=== PATIENT | female | born 1995 | race American Indian/Alaskan Native ===

== ENCOUNTER 2016-12-22 13:14 | Inpatient (IN) | payer MEDICAID, OTHER, SELFPAY ==
[2016-12-22] MEDS ORDERED: Albuterol/Ipratropium 3.0-0.5 MG/3 ML Neb Soln NEB ONE (13:26)
[2016-12-22] MEDS ORDERED: methylPREDNISolone Sodium Succinate 125 MG/2 ML SDV IVPUSH ONE (13:26)
[2016-12-22] MEDS ORDERED: Albuterol 0.083% 2.5 MG/3 ML Neb Soln NEB ONE (13:48)
[2016-12-22] MEDS: Sodium Chloride 0.9% 10 ML Syringe FLUSH PRN ×2 (13:53→13:54)
[2016-12-22 14:04] LABS: CHLORIDE,CL 103 mmol/L (101-111); SODIUM,NA 136 mmol/L (135-145)
[2016-12-22] MEDS ORDERED: Acetaminophen 325 MG Tab PO ONE (14:07)
[2016-12-22] MEDS ORDERED: Sodium Chloride 0.9% 1,000 ML IV ONE (14:54)
[2016-12-22] MEDS ORDERED: Magnesium Sulfate/Water 100 ML IV ONE (14:55)
--- NOTE | 2016-12-22 15:08 | EDM.PDOC ---
Scribed by Laura Rasmussen 12/22/16 2221 for Leila Warner NP ED HPI GENERAL MEDICAL PROBLEM - General Chief Complaint: Respiratory Problem Stated Complaint: ASTHMA Time Seen by Provider: 12/22/16 13:20 Source of Information: Reports: Patient, RN, RN Notes Reviewed History Limitations: Reports: No Limitations - History of Present Illness INITIAL COMMENTS - FREE TEXT/NARRATIVE: Patient presents with complaint of shortness of breath and cough. States she ran out of her Albuterol inhaler. She has been using Albuterol nebs instead.She states taking all her other asthma meds as directed. States fever and chills on and off for past 2 days. Location: Reports: Chest Quality: Reports: Ache Severity: Severe Improves with: Reports: None Worsens with: Reports: None Associated Symptoms: Reports: No Other Symptoms - Related Data Allergies Allergy/AdvReac Type Severity Reaction Status Date / Time No Known Allergies Allergy Verified 03/26/16 07:52 MST Home Meds: Home Meds Albuterol [Proventil HFA] 2 puff INH ASDIRECTED PRN 10/10/15 [History] Albuterol/Ipratropium [DuoNeb 3.0-0.5 MG/3 ML] 3 ml NEB Q4HR PRN 10/10/15 [ History] Fluticasone/Salmeterol [Advair Diskus 100-50] 1 puff INH BID 10/10/15 [History] Montelukast [Singulair] 10 mg PO BEDTIME 12/02/15 [History] Tiotropium [Spiriva HandiHaler] 1.29 mcg BID 01/04/16 [History] Past Medical History HEENT History: Reports: None Cardiovascular History: Reports: None Respiratory History: Reports: Asthma Genitourinary History: Reports: UTI, Recurrent [employer] History: Reports: Other (See Below) Other OB/BYN History: - Infectious Disease History Infectious Disease History: Reports: Chicken Pox - Past Surgical History HEENT Surgical History: Reports: None Cardiovascular Surgical History: Reports: None Respiratory Surgical History: Reports: None Female Surgical History: Reports: None, Other (See Below) Social & Family History - Family History Family Medical History: Noncontributory Cardiac: Reports: Hypertension Respiratory: Reports: Asthma GI: Reports: None Endocrine/Metabolic: Reports: Diabetes, Type I Oncologic: Reports: Brain - Tobacco Use Smoking Status *Q: Never Smoker Second Hand Smoke Exposure: No - Caffeine Use Caffeine Use: Reports: Soda - Recreational Drug Use Recreational Drug Use: No Drug Use in Last 12 Months: No ED ROS GENERAL - Review of Systems Review Of Systems: ROS reveals no pertinent complaints other than HPI. ED EXAM, GENERAL - Physical Exam Exam: See Below Exam Limited By: No Limitations General Appearance: Alert, WD/WN, No Apparent Distress Eye Exam: Bilateral Eye: Normal Inspection Ears: Normal External Exam, Normal Canal, Hearing Grossly Normal, Normal TMs Nose: Normal Inspection, Normal Mucosa, No Blood Throat/Mouth: Normal Inspection, Normal Lips, Normal Teeth, Normal Gums, Normal Oropharynx, Normal Voice, No Airway Compromise Head: Atraumatic, Normocephalic Neck: Normal Inspection, Supple, Non-Tender, Full Range of Motion Respiratory/Chest: Crackles (throughout and tight.) Cardiovascular: Tachycardia GI/Abdominal: Normal Bowel Sounds, Soft, Non-Tender, No Organomegaly, No Distention, No Abnormal Bruit, No Mass (Female) Exam: Deferred Rectal (Female) Exam: Deferred Back Exam: Normal Inspection, Full Range of Motion, NT Extremities: Normal Inspection, Normal Range of Motion, Non-Tender, Normal Capillary Refill, No Pedal Edema Neurological: Alert, Oriented, CN II-XII Intact, Normal Cognition, Normal Gait, Normal Reflexes, No Motor/Sensory Deficits Psychiatric: Normal Affect, Normal Mood Skin Exam: Warm, Dry, Intact, Normal Color, No Rash Lymphatic: No Adenopathy EKG INTERPRETATION EKG Date: 12/22/16 Time: 14:28 Rhythm: Other (junctional tachycardia) Rate (Beats/Min): 131 [place]: RAD-Right [place] Deviation (borderline) P-Wave: Present QRS: Normal ST-T: Other (abnormal T,consider ischemia,diffuse leads.) QT: Normal Course - Vital Signs Last Recorded V/S: Last Vital Signs Temp 102.6 F H 12/22/16 14:41 Pulse 133 H 12/22/16 14:41 Resp 28 H 12/22/16 14:41 BP 116/64 12/22/16 14:41 Pulse Ox 94 L 12/22/16 14:41 - Orders/Labs/Meds Orders: Active Orders 24 hr Category Date Time Status EKG Documentation Completion [RC] STAT Care 12/22/16 13:25 Active Peripheral IV Care [RC] . DIRECTED Care 12/22/16 13:26 Active RT Aerosol Therapy [RC] ASDIRECTED Care 12/22/16 13:26 Active RT Aerosol Therapy [RC] ASDIRECTED Care 12/22/16 13:48 Active Chest 1V Frontal [CR] Stat Exams 12/22/16 13:28 Taken Magnesium Sulfate/Water [Magnesium Sulfate 4 GM in Med 12/22/16 14:55 Active Water 100 ML] 100 ml IV ONETIME Sodium Chloride 0.9% [Normal Saline] 1,000 ml Med 12/22/16 14:54 Active IV .BOLUS Sodium Chloride 0.9% [Saline Flush] Med 12/22/16 13:24 Active 10 ml FLUSH ASDIRECTED PRN Peripheral IV Insertion Adult [OM.PC] Stat Oth 12/22/16 13:25 Ordered Medication Orders Sodium Chloride (Normal Saline) 1,000 mls @ 999 mls/hr IV .BOLUS ONE Stop: 12/22/16 15:54 Magnesium Sulfate (Magnesium Sulfate 4 Gm In Water 100 Ml) 100 mls @ 25 mls/hr IV ONETIME ONE Stop: 12/22/16 18:54 Sodium Chloride (Saline Flush) 10 ml FLUSH ASDIRECTED PRN PRN Reason: Keep Vein Open Last Admin: 12/22/16 13:54 Dose: 10 ml Admin: 12/22/16 13:53 Dose: 10 ml Labs: Laboratory Tests 12/22/16 12/22/16 Range/Units 13:39 13:39 WBC 21.6 H (5.0-10.0) 10^3/uL RBC 5.23 (4.2-5.4) 10^6/uL Hgb 14.1 D (12.0-16.0) g/dL Hct 41.5 (37.0-47.0) % MCV 79.3 L D (80-100) fL MCH 27.0 (27.0-34.0) pg MCHC 34.0 (33.0-35.0) g/dL Plt Count 345 (150-450) 10^3/uL Neut % (Auto) 82.8 H (42.2-75.2) % Lymph % (Auto) 9.7 L (20.5-50.1) % Elbert % (Auto) 6.4 (2-8) % Eos % (Auto) 0.9 L (1.0-3.0) % Baso % (Auto) 0.2 (0.0-1.0) % Sodium 136 (135-145) mmol/L Potassium 3.5 L (3.6-5.0) mmol/L Chloride 103 (101-111) mmol/L Carbon Dioxide 21.0 (21.0-31.0) mmol/L Anion Gap 15.5 BUN 8 (7-18) mg/dL Creatinine 0.9 (0.6-1.3) mg/dL Est Cr Clr Drug Dosing 84.67 mL/min Estimated GFR (MDRD) > 60 BUN/Creatinine Ratio 8.88 Glucose 111 H (74-105) mg/dL Calcium 9.2 (8.4-10.2) mg/dl Total Bilirubin 0.4 (0.2-1.0) mg/dL AST 26 (10-42) IU/L ALT 28 (10-60) IU/L Alkaline Phosphatase 85 (42-121) IU/L Total Protein 8.4 H (6.7-8.2) g/dl Albumin 4.4 (3.2-5.5) g/dl Globulin 4.0 Albumin/Globulin Ratio 1.10 Meds: Medications Generic Name Dose Route Start Last Admin Trade Name Freq PRN Reason Stop Dose Admin Sodium Chloride 1,000 mls @ 999 mls/hr 12/22/16 14:54 Normal Saline IV 12/22/16 15:54 .BOLUS ONE Magnesium Sulfate 100 mls @ 25 mls/hr 12/22/16 14:55 Magnesium Sulfate 4 Gm In Water 100 Ml IV 12/22/16 18:54 ONETIME ONE Sodium Chloride 10 ml 12/22/16 13:24 12/22/16 13:54 Saline Flush FLUSH 10 ml ASDIRECTED PRN Administration Keep Vein Open Discontinued Medications Generic Name Dose Route Start Last Admin Trade Name Freq PRN Reason Stop Dose Admin Acetaminophen 650 mg 12/22/16 14:07 12/22/16 14:32 Tylenol PO 12/22/16 14:08 650 mg NOW ONE Administration Albuterol 10 mg 12/22/16 13:48 12/22/16 14:00 Proventil Neb Soln NEB 12/22/16 13:49 10 mg ONETIME ONE Administration Albuterol/Ipratropium 3 ml 12/22/16 13:26 12/22/16 13:38 Duoneb 3.0-0.5 Mg/3 Ml NEB 12/22/16 13:27 3 ml ONETIME ONE Administration Methylprednisolone Sodium Succinate 125 mg 12/22/16 13:26 12/22/16 13:52 Solu-Medrol IVPUSH 12/22/16 13:27 125 mg ONETIME ONE Administration - Radiology Interpretation Free Text/Narrative:: Chest xray: No acute findings See rad report Departure - Departure Time of Disposition: 15:07 Disposition: Admitted As Inpatient 65 Condition: Poor, Serious Clinical Impression: Acute asthma Pneumonia Qualifiers: Pneumonia type: due to unspecified organism Laterality: right Lung location: lower lobe of lung Qualified Code(s): J18.1 - Lobar pneumonia, unspecified organism - Discharge Information Forms: ED Department Discharge - My Orders Last 24 Hours: My Active Orders 12/22/16 13:24 Sodium Chloride 0.9% [Saline Flush] 10 ml FLUSH ASDIRECTED PRN 12/22/16 13:25 EKG Documentation Completion [RC] STAT Peripheral IV Insertion Adult [OM.PC] Stat 12/22/16 13:26 Peripheral IV Care [RC] . DIRECTED RT Aerosol Therapy [RC] ASDIRECTED 12/22/16 13:28 Chest 1V Frontal [CR] Stat 12/22/16 13:48 RT Aerosol Therapy [RC] ASDIRECTED 12/22/16 14:54 Sodium Chloride 0.9% [Normal Saline] 1,000 ml IV .BOLUS 12/22/16 14:55 Magnesium Sulfate/Water [Magnesium Sulfate 4 GM in Water 100 ML] 100 ml IV ONETIME - Assessment/Plan Last 24 Hours: My Active Orders 12/22/16 13:24 Sodium Chloride 0.9% [Saline Flush] 10 ml FLUSH ASDIRECTED PRN 12/22/16 13:25 EKG Documentation Completion [RC] STAT Peripheral IV Insertion Adult [OM.PC] Stat 12/22/16 13:26 Peripheral IV Care [RC] . DIRECTED RT Aerosol Therapy [RC] ASDIRECTED 12/22/16 13:28 Chest 1V Frontal [CR] Stat 12/22/16 13:48 RT Aerosol Therapy [RC] ASDIRECTED 12/22/16 14:54 Sodium Chloride 0.9% [Normal Saline] 1,000 ml IV .BOLUS 12/22/16 14:55 Magnesium Sulfate/Water [Magnesium Sulfate 4 GM in Water 100 ML] 100 ml IV ONETIME I have read and agree with the documentation that has been completed regarding this visit. By signing this record, I attest that the documentation was completed in my physical presence and is an accurate record of the encounter.
[2016-12-22] MEDS ORDERED: Acetaminophen/HYDROcodone 325-10 MG Tab PO PRN (17:39)
[2016-12-22] MEDS ORDERED: Ondansetron 4 MG Tab.DIS PO PRN (17:39)
[2016-12-22] MEDS ORDERED: Albuterol/Ipratropium 3.0-0.5 MG/3 ML Neb Soln NEB PRN (17:44)
[2016-12-22] MEDS ORDERED: Albuterol 6.7 GM Inhaler INH PRN (17:44)
[2016-12-22] MEDS ORDERED: Codeine/guaiFENesin 100-10 MG/5 ML Syrup 5 ML Cup PO PRN (17:45)
[2016-12-22] MEDS: Albuterol/Ipratropium 3.0-0.5 MG/3 ML Neb Soln NEB SCH ×3 (17:52→23:03)
[2016-12-22] MEDS: Pantoprazole 40 MG Tab.CR PO SCH (17:53)
[2016-12-22] MEDS: Budesonide 0.5 MG/2 ML Neb Susp NEB SCH ×2 (17:53→18:28)
[2016-12-22] MEDS ORDERED: Levofloxacin/Dextrose 5%-Water 500 MG in Premix Bag 1 BAG IV SCH (18:00)
[2016-12-22] MEDS ORDERED: diphenhydrAMINE 50 MG/ML SDV IVPUSH PRN (20:37)
[2016-12-22] MEDS: methylPREDNISolone Sodium Succinate 125 MG/2 ML SDV IVPUSH SCH (20:57)
[2016-12-22] MEDS: Montelukast 10 MG Tab PO SCH (20:57)
--- NOTE | 2016-12-22 21:56 | HP ---
CHIEF COMPLAINT: Increasing shortness of breath. HISTORY OF PRESENT ILLNESS: Ms. Pete Scott is a 21-year-old female with medical history significant for chronic history of asthma and has been on nebulizers and inhalers at home visiting from the [place]. She has been here in [place] for the last 3 weeks, but for the last few days, she started experiencing increasing shortness of breath and present to the ER. While in the ER, the patient was noted to be in acute asthma exacerbation requiring nebulizer treatment and also IV magnesium needing admission to the hospital as her symptoms persisted and wheezing persisted. At this time, the patient complains increasing shortness of breath for the last few days, which has been progressively getting worse. She graded the shortness of breath as 8/10 in intensity, which got aggravated on exertion, relieved with rest and nebulizers after coming to the emergency room. Denies any chest pains. No cough with sputum for the last few days. No fevers or chills in the last few days. No nausea vomiting or diarrhea in the last few days. No complaints of chest pain. No complaints of abdominal pain. She is visiting from [place], and she ran out of her inhaler treatments. She tried to call them back, but she is off prescriptions at this time. The patient denied any history of chest pains on exertion, but has dyspnea on exertion. No history of orthopnea or paroxysmal nocturnal dyspnea. The patient denied any history of hematemesis, hematochezia, or melanotic stools. Normal bowel and bladder habits otherwise. REVIEW OF SYSTEMS: A complete review of system including skin, ear, nose, and throat, cardiovascular system, respiratory system, gastrointestinal system, genitourinary system, endocrinology, rheumatology, allergy, immunology hematology, and oncology were all evaluated and were negative except for the above-said notes. PAST MEDICAL HISTORY: Significant for asthma and history of polyhydramnios in third trimester in the past. PAST SURGICAL HISTORY: None as per the patient. ALLERGIES: No known drug allergies. SOCIAL HISTORY: The patient denied any history of smoking tobacco. No history of alcohol intake. FAMILY HISTORY: Significant for diabetes in her father. HOME MEDICATIONS: Include: 1. Spiriva inhalation treatment. 2. Singulair 10 mg at bedtime. 3. Advair Diskus 1 puff inhalation twice a day. 4. DuoNeb 3 mL nebulizer q.2 hours as needed. 5. Albuterol 2 puffs inhalation q.2 hours as needed. PHYSICAL EXAMINATION: Vital Signs: Temperature of 97.7, pulse of 122, blood pressure 191/51, respiratory rate of 27, and saturating at 92% on 2 L of oxygen. General Appearance: The patient is well oriented to time, place, and person. Follows commands spontaneously. Cardiovascular: S1, S2 heard with normal intensity. No gallops. Respiratory: Bilateral wheeze noted. Minimal crepitations at the bases. Abdomen: Soft. Bowel sounds positive. Nontender. No rigidity. Extremities: No edema bilateral lower extremities. Neurologic: No gross focal neurological deficits. LABORATORY DATA: WBC 21.6, hemoglobin 14.1, hematocrit 41.5, and platelet count 345. Sodium 136, potassium 3.5, chloride 103, bicarb 21, BUN 8, creatinine 0.9, glucose 111, AST 26, ALT 28, and total protein 8.4. ASSESSMENT: 1. Acute asthma exacerbation. 2. Leukocytosis. 3. Hypokalemia. 4. Hypomagnesemia. PLAN: 1. Acute asthma exacerbation. The patient continues to have wheeze on physical examination. We will have her on DuoNeb nebulizer every 4 hourly and also Pulmicort nebulizer twice a day. We will have her on IV methylprednisone 80 mg IV q.8 hourly. She did receive 125 mg of methylprednisone in the emergency room. We will also have her on supplemental oxygen as needed to maintain a saturation of 95% and above and closely follow the patient. Unsure if the patient has any acute bronchitis. The patient had an x-ray of the chest, which shows some haziness. We will empirically start her on IV ceftriaxone and Zithromax. The patient is also complaining of some burning micturition. We will obtain urinalysis, and we will follow the report. 2. Hypokalemia and hypomagnesium. We will replace with oral potassium chloride, and the patient did receive 4 mg of magnesium sulfate in the emergency room. We will also have her on oral magnesium, recheck a potassium and magnesium level in the a.m. 3. Leukocytosis. The patient is noted to have elevated WBC count. Unsure if the patient has any underlying acute bronchitis. We will start her on IV antibiotic regimen. 4. Code status. The patient wants to be full code. Discussed with ER physician regarding the plan of care. Reviewed the labs and medications. Reviewed the old charts. [facility] /[id number]
[2016-12-23] MEDS: Albuterol/Ipratropium 3.0-0.5 MG/3 ML Neb Soln NEB SCH ×6 (02:48→23:24)
[2016-12-23] MEDS: Pantoprazole 40 MG Tab.CR PO SCH (05:29)
[2016-12-23] MEDS: methylPREDNISolone Sodium Succinate 125 MG/2 ML SDV IVPUSH SCH ×3 (05:30→21:06)
[2016-12-23] MEDS: Sodium Chloride 0.9% 10 ML Syringe FLUSH PRN ×2 (05:31→08:56)
[2016-12-23 06:48] LABS: CHLORIDE,CL 108 mmol/L (101-111); SODIUM,NA 137 mmol/L (135-145)
[2016-12-23] MEDS: Budesonide 0.5 MG/2 ML Neb Susp NEB SCH ×2 (06:57→18:42)
[2016-12-23] MEDS: Tiotropium Inhaler 18 MCG Inhalation Powder Cap Kit of 5 INH SCH (08:27)
[2016-12-23] MEDS: Enoxaparin 40 MG/0.4 ML Syringe SUBCUT SCH (08:28)
[2016-12-23] MEDS: cefTRIAXone 1 GM in Sodium Chloride 0.9% 50 ML IV SCH (08:55)
--- NOTE | 2016-12-23 18:08 | PCM.PN ---
- General Info Date of Service: 12/23/16 Subjective Update: Patient is a 21 year old female admitted due to astham exacerbation. Today, she feels better however still with wheezes. she reports that she has had chronic wheezing. she was noted to have low oxygen on room air. patient apparently is on the process of moving here in [place]. She was supposed to see nursery manager in [place] however did not actually see him as her asthma has been good except when had ran out of her maintenance inhalers. last night, she was given a dose of Levaquin however noted to have rash on the site of administration, no other areas of rash nor SOB. she is still coughing and expectorating some phelgm. no hemoptysis. Functional Status: Reports: Tolerating Diet - Patient Data Vitals - Most Recent: Last Vital Signs Temp 36.5 C 12/23/16 14:51 Pulse 108 H 12/23/16 14:57 Resp 20 12/23/16 14:51 BP 114/63 12/23/16 14:51 Pulse Ox 93 L 12/23/16 14:57 Weight - Most Recent: 78.29 kg I&O - Last 24 Hours: Intake & Output 12/23/16 12/23/16 12/23/16 06:59 14:59 22:59 Intake Total 400 910 Balance 400 910 Lab Results Last 24 Hours: Laboratory Results - last 24 hr 12/23/16 12/23/16 Range/Units 06:18 06:18 WBC 22.5 H (5.0-10.0) 10^3/uL RBC 4.97 (4.2-5.4) 10^6/uL Hgb 13.2 (12.0-16.0) g/dL Hct 39.9 (37.0-47.0) % MCV 80.3 (80-100) fL MCH 26.6 L (27.0-34.0) pg MCHC 33.1 (33.0-35.0) g/dL Plt Count 372 (150-450) 10^3/uL Sodium 137 (135-145) mmol/L Potassium 4.3 (3.6-5.0) mmol/L Chloride 108 (101-111) mmol/L Carbon Dioxide 20.0 L (21.0-31.0) mmol/L Anion Gap 13.3 BUN 10 (7-18) mg/dL Creatinine 0.5 L (0.6-1.3) mg/dL Est Cr Clr Drug Dosing 152.40 mL/min Estimated GFR (MDRD) > 60 Glucose 146 H (74-105) mg/dL Calcium 9.1 (8.4-10.2) mg/dl Phosphorus 2.8 (2.5-4.6) mg/dL Magnesium 2.2 (1.8-2.5) mg/dL Maged Results Last 24 Hours: Microbiology 12/22/16 18:30 Gram Stain - Final Sputum - Expectorated Med Orders - Current: Current Medications Hydrocodone Bitart/Acetaminophen ([place] 325-10 Mg) 1 tab PO Q4H PRN PRN Reason: Pain (moderate 4-6) Last Admin: 12/23/16 15:22 Dose: 1 tab Albuterol (Proventil Hfa) 0 gm INH Q2H PRN PRN Reason: shortness of breath Albuterol/Ipratropium (Duoneb 3.0-0.5 Mg/3 Ml) 3 ml NEB Q4HRRT [facility] Last Admin: 12/23/16 14:56 Dose: 3 ml Albuterol/Ipratropium (Duoneb 3.0-0.5 Mg/3 Ml) 3 ml NEB Q2H PRN PRN Reason: Shortness of Breath Budesonide (Pulmicort) 0.5 mg NEB BIDRT [facility] Last Admin: 12/23/16 06:57 Dose: 0.5 mg Diphenhydramine HCl (Benadryl) 25 mg IVPUSH Q6H PRN PRN Reason: Allergies Last Admin: 12/22/16 20:49 Dose: 25 mg Enoxaparin Sodium (Lovenox) 40 mg SUBCUT DAILY [facility] Last Admin: 12/23/16 08:28 Dose: Not Given Guaifenesin/Codeine Phosphate (Robitussin Ac) 5 ml PO Q6H PRN PRN Reason: Cough Last Admin: 12/22/16 20:56 Dose: 5 ml Ceftriaxone Sodium 1 gm/ (Sodium Chloride) 50 mls @ 100 mls/hr IV Q24H [facility] Last Admin: 12/23/16 08:55 Dose: 100 mls/hr Methylprednisolone Sodium Succinate (Solu-Medrol) 80 mg IVPUSH Q8H [facility] Last Admin: 12/23/16 13:40 Dose: 80 mg Montelukast Sodium (Singulair) 10 mg PO BEDTIME [facility] Last Admin: 12/22/16 20:57 Dose: 10 mg Ondansetron HCl (Zofran Odt) 4 mg PO Q4H PRN PRN Reason: nausea, able to take PO Pantoprazole Sodium (Protonix) 40 mg PO ACBREAKFAST [facility] Last Admin: 12/23/16 05:29 Dose: 40 mg Sodium Chloride (Saline Flush) 10 ml FLUSH ASDIRECTED PRN PRN Reason: Keep Vein Open Last Admin: 12/23/16 08:56 Dose: 10 ml Tiotropium Lorenzo (Spiriva Handihaler) 18 mcg INH DAILY [facility] Last Admin: 12/23/16 08:27 Dose: 18 mcg Discontinued Medications Acetaminophen (Tylenol) 650 mg PO NOW ONE Stop: 12/22/16 14:08 Last Admin: 12/22/16 14:32 Dose: 650 mg Albuterol (Proventil Neb Soln) 10 mg NEB ONETIME ONE Stop: 12/22/16 13:49 Last Admin: 12/22/16 14:00 Dose: 10 mg Albuterol/Ipratropium (Duoneb 3.0-0.5 Mg/3 Ml) 3 ml NEB ONETIME ONE Stop: 12/22/16 13:27 Last Admin: 12/22/16 13:38 Dose: 3 ml Sodium Chloride (Normal Saline) 1,000 mls @ 999 mls/hr IV .BOLUS ONE Stop: 12/22/16 15:54 Last Admin: 12/22/16 15:11 Dose: 999 mls/hr Magnesium Sulfate (Magnesium Sulfate 4 Gm In Water 100 Ml) 100 mls @ 25 mls/hr IV ONETIME ONE Stop: 12/22/16 18:54 Last Admin: 12/22/16 16:09 Dose: 25 mls/hr Levofloxacin/Dextrose 500 mg/ (Premix) 100 mls @ 100 mls/hr IV Q24H [facility] Last Infusion: 12/22/16 20:30 Dose: 0 mls/hr Methylprednisolone Sodium Succinate (Solu-Medrol) 125 mg IVPUSH ONETIME ONE Stop: 12/22/16 13:27 Last Admin: 12/22/16 13:52 Dose: 125 mg - Exam Quality Assessment: Supplemental Oxygen General: Alert, Oriented Lungs: Normal Respiratory Effort, Wheezing Cardiovascular: Regular Rate, Regular Rhythm GI/Abdominal Exam: Normal Bowel Sounds, Soft, Non-Tender - Problem List Review Problem List Initiated/Reviewed/Updated: Yes - My Orders Last 24 Hours: My Active Orders 12/23/16 08:30 cefTRIAXone [Rocephin] 1 gm Sodium Chloride 0.9% [Normal Saline] 50 ml IV Q24H 12/23/16 09:16 Incentive Spirometry [RT Incentive Spirometry] [RC] ASDIRECTED 12/23/16 09:34 Flutter Valve Therapy [RT Chest Physiotherapy] [RC] ASDIRECTED 12/24/16 06:00 CBC WITH MANUAL DIFF [HEME] Routine - Plan Plan:: Asthma exacerbation - clinically feeling better however still with low saturations on room air. - currently on Solumedrol every 8 hours, will consider cutting down to every 12 hours - continue nebulizations, incentive spirometry and flutter valve - start rocephin IV, await sputum culture - if oxygen is ok on resting at room air, check oxygen on ambulation Leukocytosis - likely related to steroid use versus underlying infection - patient afebrile - repeat CBC - blood cultures so far unrevealing Code status - Full code
[2016-12-23] MEDS: Montelukast 10 MG Tab PO SCH (21:07)
[2016-12-24] MEDS: Albuterol/Ipratropium 3.0-0.5 MG/3 ML Neb Soln NEB SCH ×3 (03:35→12:05)
[2016-12-24] MEDS: Pantoprazole 40 MG Tab.CR PO SCH (06:52)
[2016-12-24 06:57] LABS: CHLORIDE,CL 107 mmol/L (101-111); SODIUM,NA 139 mmol/L (135-145)
[2016-12-24] MEDS: Budesonide 0.5 MG/2 ML Neb Susp NEB SCH (07:13)
[2016-12-24 07:32] VITALS: BP 132/64
[2016-12-24] MEDS ORDERED: methylPREDNISolone Sodium Succinate 40 MG/1 ML SDV IVPUSH SCH (09:00)
[2016-12-24] MEDS: cefTRIAXone 1 GM in Sodium Chloride 0.9% 50 ML IV SCH (09:20)
[2016-12-24] MEDS: Enoxaparin 40 MG/0.4 ML Syringe SUBCUT SCH ×2 (09:21→09:36)
[2016-12-24] MEDS: Tiotropium Inhaler 18 MCG Inhalation Powder Cap Kit of 5 INH SCH (09:22)
--- NOTE | 2016-12-25 08:47 | EKG ---
12/22/2016- YESSI BREWER - EKG done on a 21-year-old female showing sinus tachycardia with a heart rate of 131 beats per minute. Right axis deviation. T-wave changes on inferior leads and anterior leads. [facility] /[id number]
--- NOTE | 2016-12-25 09:59 | DISCH ---
FINAL DIAGNOSES: 1. Asthma exacerbation. 2. Leukocytosis. BRIEF HISTORY AND PHYSICAL EXAMINATION: The patient is a 21-year-old female who was admitted because of shortness of breath over the last few days, gradually getting worse, relieved with resting and nebulizers that were given in the emergency room. She has a history of asthma. Physical exam on admission showed a blood pressure 191/51, heart rate of 122 beats per minute, respirations 27 breaths per minute, oxygen saturation 92% on 2 L, and temperature 97.7. Bilateral wheeze noted. No edema. LABORATORY DATA: Workup done in the hospital: Initial CBC showed WBC of 21.6. Potassium of 3.5. Urinalysis, trace blood. Repeat CBC showed a WBC of 22.5 and then 22.1. MICROBIOLOGIC DATA: Microbiologic studies showed sputum culture showing Haemophilus species. IMAGING: Chest x-ray showed no acute pulmonary abnormality identified. HOSPITAL COURSE: The patient was admitted under medical surgical bed. She was continued on DuoNeb nebulizer for hours with Pulmicort nebulizer twice a day. Solu-Medrol 80 mg every 8 hours was done after she had gotten a 125 mg loading dose of Solu-Medrol in the emergency room. She was given IV Levaquin. However , she had a localized reaction to this. She was continued on IV Rocephin. She remained afebrile during her stay. Initially, she had low saturations on room air, eventually started to feel better and was able to maintain good saturations on ambulation around 96%. PHYSICAL EXAMINATION: Vital Signs: On discharge, blood pressure 132/64, heart rate of 77 beats per minute, respirations 18 breaths per minute, and oxygen saturation 92% on room air. General Appearance: Awake, in no distress. Chest: Symmetric chest expansion. Lungs: Bilateral air entry with occasional wheeze in both harris. Extremities: No edema. Good pulses. DISCHARGE INSTRUCTIONS: The patient is stable to be discharged home. Continue and finish steroids and antibiotics. Monitor for intolerance from the antibiotic use. Her Advair was also refilled. Her DuoNeb and albuterol inhalers were refilled. Advised to follow up within 1 week in the clinic to have a repeat CBC given the leukocytosis which is most likely from the steroid. To come back to the emergency room with emergent health concerns. [facility] /[id number] MTDD
== END 2016-12-24 12:50 | disposition home or self-care (01) | DRG 203 ==
LOC: DL.ED 13:14 → DL.MS 16:00 → UNDOADMIN 16:00 → DL.MS 17:39
PROVIDERS: ADMIT Internal Medicine; ATTEND Internal Medicine
DX: J18.9 Pneumonia, unspecified organism (principal); J45.901 Unspecified asthma with (acute) exacerbation; E87.6 Hypokalemia; E83.42 Hypomagnesemia; D72.829 Elevated white blood cell count, unspecified; Z79.899 Other long term (current) drug therapy
CPT/HCPCS: 36415; 71010; 80053; 81001; 83735; 85025; 93005; 94640 ×2; 96361; 96374; 99285; A9270; J2930; J3475; J7030; J7050 ×2; J7620; 80048; 84100; 85027; 87070; 87077; 87186; 87205; 94010; 94060; 94667; 94668; 94760; J0696; J1200; J1650; J1956; J2920

== ENCOUNTER 2017-02-26 23:04 | Emergency (ER) | payer MEDICAID ==
[2017-02-26] MEDS ORDERED: Albuterol 6.7 GM Inhaler INH ONE (23:05)
[2017-02-26] MEDS ORDERED: Albuterol/Ipratropium 3.0-0.5 MG/3 ML Neb Soln NEB ONE (23:32)
--- NOTE | 2017-02-26 23:38 | EDM.PDOC ---
ED HPI GENERAL MEDICAL PROBLEM - General Chief Complaint: Respiratory Problem Stated Complaint: ASTHMA [id number] Time Seen by Provider: 02/26/17 23:20 Source of Information: Reports: Patient, Family (mother) History Limitations: Reports: No Limitations - History of Present Illness INITIAL COMMENTS - FREE TEXT/NARRATIVE: Sonia reports coughing fits that make her feel her lungs close up and that she can't breathe. This was most prominent last night; she treated with the last of her Duoneb which helped. Albuterol is her only remaining asthma medication today, and she is worried she won't make it through the night without her medication. When she is not coughing, she does not feel the sensation of closing up. Her coughing last night occasionally had mild blood streaks; this has resolved. Denies fever, chills, malaise, and night sweats. Duration: Chronic Improves with: Reports: Medication Associated Symptoms: Reports: No Other Symptoms Treatments FORM [employer]TER [employer] FORMS: Reports: Breathing Treatments - Related Data Allergies Allergy/AdvReac Type Severity Reaction Status Date / Time levofloxacin Allergy Mild Hives Verified 02/26/17 23:13 Home Meds: Home Meds Montelukast [Singulair] 10 mg PO BEDTIME 12/02/15 [History] Tiotropium [Spiriva HandiHaler] 1.29 mcg INH DAILY 01/04/16 [History] Albuterol [Proventil HFA] 2 puff INH Q2H PRN #3 inhaler 12/24/16 [Rx] Albuterol/Ipratropium [DuoNeb 3.0-0.5 MG/3 ML] 3 ml NEB Q2H PRN #10 neb [Rx] Amoxicillin/Potassium Clav [Augmentin 875-125 Tablet] 1 each PO BID #12 tablet 12/24/16 [Rx] Fluticasone/Salmeterol [Advair 250-50 Diskus] 1 puff IH BID 30 Days #1 disk.w.dev 12/24/16 [Rx] predniSONE See Taper PO .TAPER #7 tablet 12/24/16 [Rx] Past Medical History HEENT History: Reports: None Cardiovascular History: Reports: None Respiratory History: Reports: Asthma Genitourinary History: Reports: UTI, Recurrent 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 History: - Infectious Disease History Infectious Disease History: Reports: Chicken Pox - Past Surgical History HEENT Surgical History: Reports: None Cardiovascular Surgical History: Reports: None Respiratory Surgical History: Reports: None Female Surgical History: Reports: None Social & Family History - Family History Family Medical History: Noncontributory Cardiac: Reports: Hypertension Respiratory: Reports: Asthma GI: Reports: None Endocrine/Metabolic: Reports: Diabetes, Type I Oncologic: Reports: Brain - Tobacco Use Smoking Status *Q: Never Smoker Second Hand Smoke Exposure: No - Caffeine Use Caffeine Use: Reports: None - Recreational Drug Use Recreational Drug Use: No Drug Use in Last 12 Months: No ED ROS GENERAL - Review of Systems Review Of Systems: See Below Constitutional: Reports: No Symptoms HEENT: Reports: No Symptoms Respiratory: Reports: Wheezing, Cough, Sputum, Other (tightness) Cardiovascular: Reports: No Symptoms ED EXAM, GENERAL - Physical Exam Exam: See Below Exam Limited By: No Limitations General Appearance: Alert, WD/WN, No Apparent Distress Nose: Normal Inspection Throat/Mouth: Normal Inspection, Normal Lips, Normal Teeth, Normal Gums, Normal Oropharynx, Normal Voice, No Airway Compromise Neck: Normal Inspection, Supple, Non-Tender, Full Range of Motion Respiratory/Chest: No Respiratory Distress, No Accessory Muscle Use, Chest Non- Tender, Wheezing (inspiratory and expiratory) Cardiovascular: Regular Rate, Rhythm, No Gallop, No Murmur, No Rub Neurological: Alert, CN II-XII Intact, Normal Cognition Skin Exam: Normal Color Course - Vital Signs Last Recorded V/S: Last Vital Signs Temp 96.2 F 02/26/17 23:07 Pulse 80 02/26/17 23:07 Resp 20 02/26/17 23:07 BP 116/72 02/26/17 23:07 Pulse Ox 98 02/26/17 23:07 - Orders/Labs/Meds Orders: Active Orders 24 hr Category Date Time Status RT Aerosol Therapy [RC] ASDIRECTED Care 02/26/17 23:33 Ordered Meds: Medications Discontinued Medications Generic Name Dose Route Start Last Admin Trade Name Freq PRN Reason Stop Dose Admin Albuterol/Ipratropium 3 ml 02/26/17 23:32 02/26/17 23:36 Duoneb 3.0-0.5 Mg/3 Ml NEB 02/26/17 23:33 3 ml ONETIME ONE Administration Prednisone 40 mg 02/26/17 23:47 02/26/17 23:52 Prednisone PO 02/26/17 23:48 40 mg ONETIME ONE Administration Departure - Departure Time of Disposition: 23:59 Disposition: Home, Self-Care 01 Condition: Good Clinical Impression: Asthma Qualifiers: Asthma severity: moderate Asthma persistence: persistent Asthma complication type: with acute exacerbation Qualified Code(s): J45.41 - Moderate persistent asthma with (acute) exacerbation Exacerbation of asthma Qualifiers: Asthma severity: moderate Asthma persistence: persistent Qualified Code(s): J45.41 - Moderate persistent asthma with (acute) exacerbation - Discharge Information Instructions: Asthma, Adult Forms: ED Department Discharge Additional Instructions: Refill and continue home asthma medications. See your primary doctor and/or director hardware for follow-up. - My Orders Last 24 Hours: My Active Orders 02/26/17 23:33 RT Aerosol Therapy [RC] ASDIRECTED - Assessment/Plan Last 24 Hours: My Active Orders 02/26/17 23:33 RT Aerosol Therapy [RC] ASDIRECTED Assessment:: Asthma exacerbation without respiratory distress and without hypoxia. No sign of pneumonia. I attribute cough to asthma exacerbation. Plan: Duoneb and prednisone administered in ED. Stable and fit for discharge to home. She needs refills of her home asthma medications which she will get as an outpatient from her PCP. She also needs to follow up with Pulmonology as previously planned. She reports she missed her Pulmonology appointment because she is busy with her children
[2017-02-26] MEDS ORDERED: predniSONE 20 MG Tab PO ONE (23:47)
[2017-02-27] MEDS ORDERED: Albuterol 6.7 GM Inhaler INH ONE (00:08)
[2017-02-27 00:13] VITALS: BP 113/66
== END 2017-02-27 00:15 | disposition home or self-care (01) ==
LOC: DL.ED 23:04
DX: J45.41 Moderate persistent asthma with (acute) exacerbation (principal); Z79.899 Other long term (current) drug therapy; Z88.1 Allergy status to other antibiotic agents
CPT/HCPCS: 94640; 99283; A9270

== ENCOUNTER 2018-03-22 01:31 | Emergency (ER) | payer MEDICAID, SELFPAY ==
[2018-03-22] MEDS ORDERED: methylPREDNISolone Sodium Succinate 125 MG/2 ML SDV IVPUSH ONE (01:39)
[2018-03-22] MEDS ORDERED: Albuterol/Ipratropium 3.0-0.5 MG/3 ML Neb Soln NEB ONE (01:39)
[2018-03-22 01:45] VITALS: BP 135/75
[2018-03-22] MEDS ORDERED: Codeine/guaiFENesin 100-10 MG/5 ML Syrup 5 ML Cup PO ONE (01:50)
--- NOTE | 2018-03-22 01:50 | EDM.PDOC ---
ED HPI GENERAL MEDICAL PROBLEM - General Stated Complaint: ASTHMA Time Seen by Provider: 03/22/18 01:40 Source of Information: Reports: Patient History Limitations: Reports: No Limitations - History of Present Illness INITIAL COMMENTS - FREE TEXT/NARRATIVE: This 22 yo female patient reports to the ED with increased difficulties breathing. The patient reports her symptoms have been getting worse throughout the day. The patient did take her inhaler about 30 times today with little to no symptom relief. The patient reports she has also been drinking a lot of water. The patient reports no other problems at this time. Onset: Today Duration: Constant, Getting Worse Location: Reports: Chest Quality: Reports: Other Severity: Moderate Improves with: Reports: None Worsens with: Reports: None Associated Symptoms: Reports: Shortness of Breath - Related Data Allergies Allergy/AdvReac Type Severity Reaction Status Date / Time levofloxacin Allergy Mild Hives Verified 09/26/17 19:16 MDT Home Meds: Home Meds Montelukast [Singulair] 10 mg PO BEDTIME 12/02/15 [History] Albuterol [Proventil HFA] 2 puff INH Q2H PRN #3 inhaler 12/24/16 [Rx] Albuterol/Ipratropium [DuoNeb 3.0-0.5 MG/3 ML] 3 ml NEB Q2H PRN #10 neb [Rx] Inhaler, Assist Devices [Aerochamber with Flowsignal] 1 each ASDIRECTED #1 spacer 04/12/17 [Rx] Benzonatate [Tessalon Perle] 100 mg PO TID #10 capsule 12/04/17 [Rx] predniSONE [Prednisone] 20 mg PO BID 5 Days #10 tablet 12/04/17 [Rx] Past Medical History HEENT History: Reports: None Cardiovascular History: Reports: None Respiratory History: Reports: Asthma Genitourinary History: Reports: UTI, Recurrent 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: - Infectious Disease History Infectious Disease History: Reports: Chicken Pox - Past Surgical History HEENT Surgical History: Reports: Oral Surgery Respiratory Surgical History: Reports: None Female Surgical History: Reports: None Social & Family History - Family History Family Medical History: Noncontributory Cardiac: Reports: Hypertension Respiratory: Reports: Asthma GI: Reports: None Endocrine/Metabolic: Reports: Diabetes, Type I Oncologic: Reports: Brain - Caffeine Use Caffeine Use: Reports: None - Living Situation & Occupation Living situation: Reports: Single, with Family Occupation: Unemployed ED ROS GENERAL - Review of Systems Review Of Systems: ROS reveals no pertinent complaints other than HPI. ED EXAM, GENERAL - Physical Exam Exam: See Below Exam Limited By: No Limitations General Appearance: Alert, WD/WN, Moderate Distress Eye Exam: Bilateral Eye: EOMI, Normal Inspection, PERRL Ears: Normal External Exam, Normal Canal, Hearing Grossly Normal, Normal TMs Nose: Normal Inspection, Normal Mucosa, No Blood Throat/Mouth: Normal Inspection, Normal Lips, Normal Teeth, Normal Gums, Normal Oropharynx, Normal Voice, No Airway Compromise Head: Atraumatic, Normocephalic Neck: Normal Inspection, Supple, Non-Tender, Full Range of Motion Respiratory/Chest: Chest Non-Tender, Wheezing (inspiratory and expiratory) Cardiovascular: Normal Peripheral Pulses, Regular Rate, Rhythm, No Edema, No Gallop, No JVD, No Murmur, No Rub GI/Abdominal: Normal Bowel Sounds (Female) Exam: Deferred Rectal (Female) Exam: Deferred Back Exam: Normal Inspection, Full Range of Motion, NT Extremities: Normal Inspection, Normal Range of Motion, Non-Tender, Normal Capillary Refill, No Pedal Edema Neurological: Alert, Oriented, CN II-XII Intact, Normal Cognition, Normal Gait, Normal Reflexes, No Motor/Sensory Deficits Psychiatric: Normal Affect, Normal Mood Skin Exam: Warm, Dry, Intact, Normal Color, No Rash Lymphatic: No Adenopathy Course - Vital Signs Last Recorded V/S: Last Vital Signs Temp 36.4 C 03/22/18 01:40 Pulse 97 03/22/18 01:40 Resp 20 03/22/18 01:40 BP 135/75 03/22/18 01:40 Pulse Ox 97 03/22/18 01:40 - Orders/Labs/Meds Orders: Active Orders 24 hr Category Date Time Status RT Aerosol Therapy [RC] ASDIRECTED Care 03/22/18 01:39 Ordered Meds: Medications Discontinued Medications Generic Name Dose Route Start Last Admin Trade Name Freq PRN Reason Stop Dose Admin Albuterol/Ipratropium 3 ml 03/22/18 01:39 03/22/18 01:49 Duoneb 3.0-0.5 Mg/3 Ml NEB 03/22/18 01:40 3 ml ONETIME ONE Administration Ceftriaxone Sodium 1,000 mg 03/22/18 02:50 Rocephin IVPUSH 03/22/18 02:51 ONETIME ONE Guaifenesin/Codeine Phosphate 5 ml 03/22/18 01:50 03/22/18 01:58 Robitussin Ac PO 03/22/18 01:51 5 ml ONETIME ONE Administration Methylprednisolone Sodium Succinate 125 mg 03/22/18 01:39 03/22/18 01:56 Solu-Medrol IVPUSH 03/22/18 01:40 125 mg ONETIME ONE Administration Departure - Departure Time of Disposition: 02:52 Disposition: Home, Self-Care 01 Condition: Fair Clinical Impression: Acute asthma exacerbation Qualifiers: Asthma severity: moderate Asthma persistence: persistent Qualified Code(s): J45.41 - Moderate persistent asthma with (acute) exacerbation - Discharge Information *PRESCRIPTION DRUG MONITORING PROGRAM REVIEWED*: Not Applicable *COPY OF PRESCRIPTION DRUG MONITORING REPORT IN PATIENT LORETO: Not Applicable Instructions: Asthma, Adult, [id number] Forms: ED Department Discharge Care Plan Goals: The patient was advised of the examination results during the visit. The patient was given an IV dose of SoluMedrol, an IV dose of Rocephin, a DuoNeb treatment and an oral dose of cough medication while in the ED. The patient was discharged with a script for Azithromycin (250 mg) #6 to take 2 by mouth on day 1 and 1 by mouth on days 2-5 and Prednisone (20 mg) #10 to take 2 by mouth daily for 5 days. If the patient has any additional symptoms or concerns, the patient should either return to the emergency department or visit her primary care facility. - My Orders Last 24 Hours: My Active Orders 03/22/18 01:39 RT Aerosol Therapy [RC] ASDIRECTED - Assessment/Plan Last 24 Hours: My Active Orders 03/22/18 01:39 RT Aerosol Therapy [RC] ASDIRECTED
[2018-03-22] MEDS ORDERED: cefTRIAXone 500 MG Vial IVPUSH ONE (02:50)
== END 2018-03-22 03:12 | disposition home or self-care (01) ==
LOC: DL.ED 01:31
DX: J45.901 Unspecified asthma with (acute) exacerbation (principal); Z88.1 Allergy status to other antibiotic agents
CPT/HCPCS: 96374; 96375; 99284; A9270; J0696; J2930; J7620-GY

== ENCOUNTER 2018-07-24 16:25 | Emergency (ER) | payer MEDICAID ==
[2018-07-24] MEDS ORDERED: predniSONE 20 MG Tab PO ONE (16:41)
[2018-07-24] MEDS ORDERED: Albuterol/Ipratropium 3.0-0.5 MG/3 ML Neb Soln NEB ONE (16:41)
[2018-07-24] MEDS ORDERED: Budesonide 0.5 MG/2 ML Neb Susp NEB ONE (16:41)
--- NOTE | 2018-07-24 16:45 | EDM.PDOC ---
ED HPI GENERAL MEDICAL PROBLEM - General Chief Complaint: Respiratory Problem Stated Complaint: PROBLEMS WITH ASTHMA Time Seen by Provider: 07/24/18 16:42 Source of Information: Reports: Patient History Limitations: Reports: No Limitations - History of Present Illness INITIAL COMMENTS - FREE TEXT/NARRATIVE: patient comes emergency department today from home with concerns of a asthma exacerbation. For the past 2 days she has had increase in need of her albuterol. She has been taking her tear troponin Symbicort and montelukast as prescribed. She does use her nebulizer as well as inhaler multiple times a day with little improvement. She has had no fever or chills. Her cough is dry and hacking in nature. Her cough is nonproductive. She does not smoke. Last time that she was on steroids for asthma exacerbation was in March. She has never required intubation or BiPAP ventilation for asthma. - Related Data Allergies Allergy/AdvReac Type Severity Reaction Status Date / Time levofloxacin Allergy Mild Hives Verified 07/24/18 16:46 Home Meds: Home Meds Montelukast [Singulair] 10 mg PO BEDTIME 12/02/15 [History] Albuterol [Proventil HFA] 2 puff INH Q2H PRN #3 inhaler 12/24/16 [Rx] Inhaler, Assist Devices [Aerochamber with Flowsignal] 1 each MC ASDIRECTED #1 spacer 04/12/17 [Rx] Tiotropium [Spiriva HandiHaler] 1 inh INH DAILY 07/24/18 [History] Past Medical History HEENT History: Reports: None Cardiovascular History: Reports: None Respiratory History: Reports: Asthma Genitourinary History: Reports: UTI, Recurrent 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: - Infectious Disease History Infectious Disease History: Reports: Chicken Pox - Past Surgical History HEENT Surgical History: Reports: Oral Surgery Respiratory Surgical History: Reports: None Female Surgical History: Reports: None Social & Family History - Family History Family Medical History: Noncontributory Cardiac: Reports: Hypertension Respiratory: Reports: Asthma GI: Reports: None Endocrine/Metabolic: Reports: Diabetes, Type I Oncologic: Reports: Brain - Caffeine Use Caffeine Use: Reports: None - Living Situation & Occupation Living situation: Reports: Single, with Family Occupation: Unemployed ED ROS GENERAL - Review of Systems Review Of Systems: ROS reveals no pertinent complaints other than HPI. ED EXAM, GENERAL - Physical Exam Exam: See Below Free Text/Narrative:: She is able to speak in 4-6 word sentences. No stridor. Exam Limited By: No Limitations General Appearance: Alert, Moderate Distress Eye Exam: Bilateral Eye: EOMI, Normal Inspection Ears: Normal External Exam, Normal TMs Nose: Normal Inspection Throat/Mouth: Normal Inspection, Normal Oropharynx Head: Atraumatic, Normocephalic Neck: Normal Inspection, Supple Respiratory/Chest: Decreased Breath Sounds, Wheezing (inspiratory and expiratory. ), Accessory Muscle Use, Prolonged Expiration. No: Rales, Rhonchi, Stridor Cardiovascular: Normal Peripheral Pulses, Regular Rate, Rhythm, Tachycardia GI/Abdominal: Normal Bowel Sounds, Soft Back Exam: Normal Inspection, Full Range of Motion Extremities: Normal Inspection, Normal Range of Motion, Normal Capillary Refill Neurological: Alert, Oriented, Normal Cognition, No Motor/Sensory Deficits Psychiatric: Normal Affect, Normal Mood Skin Exam: Warm, Dry, Intact, Normal Color Course - Vital Signs Last Recorded V/S: Last Vital Signs Temp 36.4 C 07/24/18 16:42 Pulse 95 07/24/18 16:53 Resp 16 07/24/18 16:42 BP 117/73 07/24/18 16:42 Pulse Ox 93 L 07/24/18 16:42 - Orders/Labs/Meds Orders: Active Orders 24 hr Category Date Time Status RT Aerosol Therapy [RC] ASDIRECTED Care 07/24/18 16:41 Active Meds: Medications Discontinued Medications Generic Name Dose Route Start Last Admin Trade Name Drewq PRN Reason Stop Dose Admin Albuterol/Ipratropium 3 ml 07/24/18 16:41 07/24/18 16:50 Duoneb 3.0-0.5 Mg/3 Ml NEB 07/24/18 16:42 3 ml ONETIME ONE Administration Budesonide 1 mg 07/24/18 16:41 07/24/18 16:50 Pulmicort NEB 07/24/18 16:42 1 mg ONETIME ONE Administration Prednisone 60 mg 07/24/18 16:41 07/24/18 17:03 Prednisone PO 07/24/18 16:42 60 mg ONETIME ONE Administration - Re-Assessments/Exams Free Text/Narrative Re-Assessment/Exam: 07/24/18 16:44 DUo-neb nebulizer 1mg budesonide nebulizer prednisone 60mg PO. 07/24/18 20:34 after the above therapy she feels much better and back to normal. She has no inspiratory wheezing mild expiratory wheezing. I did discuss the importance of using a spacer with her MDI inhaler. We'll send her home with some prednisone and continue her primary therapy. If she has recurrence on a regular basis she should see her primary care to consider increasing herchronic daily therapy. She is understanding this and her questions are answered. Departure - Departure Time of Disposition: 17:33 Disposition: Home, Self-Care 01 Clinical Impression: Exacerbation of asthma Qualifiers: Asthma severity: moderate Asthma persistence: unspecified Qualified Code(s): J45.901 - Unspecified asthma with (acute) exacerbation - Discharge Information Instructions: Bronchospasm, Adult, [id number], Asthma, Adult, [id number] Referrals: PCP,None [Ordering Only Provider] - Forms: ED Department Discharge Additional Instructions: Use a spacer with your MDI to help with the administration of the medication. Use your albuterol nebulizer every 4 hrs until the acute exacerbation resolves then as needed nebulizer or MDI. Continue your previous medications as before. Prednisone, 60mg a day for the next 5 days. First dose given in the ED. RX to start tomorrow for a total of 5 days. RX given to the patient. Return to the ED if new or worsening symptoms. Follow up with PCP in the Next 4-6 days if not improving sooner if worse. - My Orders Last 24 Hours: My Active Orders 07/24/18 16:41 RT Aerosol Therapy [RC] ASDIRECTED - Assessment/Plan Last 24 Hours: My Active Orders 07/24/18 16:41 RT Aerosol Therapy [RC] ASDIRECTED Assessment:: Acute asthma exacerbation. Plan: Use a spacer with your MDI to help with the administration of the medication. Use your albuterol nebulizer every 4 hrs until the acute exacerbation resolves then as needed nebulizer or MDI. Continue your previous medications as before. Prednisone, 60mg a day for the next 5 days. First dose given in the ED. RX to start tomorrow for a total of 5 days. RX given to the patient. Return to the ED if new or worsening symptoms. Follow up with PCP in the Next 4-6 days if not improving sooner if worse.
[2018-07-24 16:46] VITALS: BP 117/73
== END 2018-07-24 17:46 | disposition home or self-care (01) ==
LOC: DL.ED 16:25
DX: J45.901 Unspecified asthma with (acute) exacerbation (principal); Z98.890 Other specified postprocedural states; Z88.1 Allergy status to other antibiotic agents
CPT/HCPCS: 94640; 99284; A9270; J7620-GY

== ENCOUNTER 2018-08-07 02:23 | Emergency (ER) | payer MEDICAID ==
[2018-08-07] MEDS ORDERED: Albuterol/Ipratropium 3.0-0.5 MG/3 ML Neb Soln NEB ONE (02:30)
[2018-08-07] MEDS ORDERED: methylPREDNISolone Sodium Succinate 125 MG/2 ML SDV IM ONE (02:30)
[2018-08-07] MEDS ORDERED: Albuterol/Ipratropium 3.0-0.5 MG/3 ML Neb Soln ONE (02:31)
[2018-08-07] MEDS ORDERED: methylPREDNISolone Sodium Succinate 125 MG/2 ML SDV ONE (02:31)
--- NOTE | 2018-08-07 02:31 | EDM.PDOC ---
ED HPI GENERAL MEDICAL PROBLEM - General Stated Complaint: ASTHMA Time Seen by Provider: 08/07/18 02:30 Source of Information: Reports: Patient History Limitations: Reports: No Limitations - History of Present Illness INITIAL COMMENTS - FREE TEXT/NARRATIVE: 2 days h/o worsening asthma, nebs not helping. Upper Chest Pain Score (Numeric/FACES): 5 - Related Data Allergies Allergy/AdvReac Type Severity Reaction Status Date / Time levofloxacin Allergy Mild Hives Verified 08/07/18 02:49 Home Meds: Home Meds Montelukast [Singulair] 10 mg PO BEDTIME 12/02/15 [History] Albuterol [Proventil HFA] 2 puff INH Q2H PRN #3 inhaler 12/24/16 [Rx] Inhaler, Assist Devices [Aerochamber with Flowsignal] 1 each MC ASDIRECTED #1 spacer 04/12/17 [Rx] Tiotropium [Spiriva HandiHaler] 1 inh INH DAILY 07/24/18 [History] Albuterol [Proventil Neb Soln] 2.5 mg INH Q4H PRN 08/07/18 [History] Past Medical History HEENT History: Reports: None Cardiovascular History: Reports: None Respiratory History: Reports: Asthma Genitourinary History: Reports: UTI, Recurrent 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: - Infectious Disease History Infectious Disease History: Reports: Chicken Pox - Past Surgical History HEENT Surgical History: Reports: Oral Surgery Respiratory Surgical History: Reports: None Female Surgical History: Reports: None Social & Family History - Family History Family Medical History: Noncontributory Cardiac: Reports: Hypertension Respiratory: Reports: Asthma GI: Reports: None Endocrine/Metabolic: Reports: Diabetes, Type I Oncologic: Reports: Brain - Caffeine Use Caffeine Use: Reports: None - Living Situation & Occupation Living situation: Reports: Single, with Family Occupation: Unemployed ED ROS GENERAL - Review of Systems Review Of Systems: ROS reveals no pertinent complaints other than HPI. ED EXAM, GENERAL - Physical Exam Exam: See Below Exam Limited By: No Limitations General Appearance: Alert, WD/WN, Mild Distress, Other (wheezing) Ears: Hearing Grossly Normal Throat/Mouth: Normal Voice, No Airway Compromise Head: Atraumatic Neck: Non-Tender, Full Range of Motion Respiratory/Chest: Decreased Breath Sounds, Wheezing, Prolonged Expiration. No : Retractions, Splinting Cardiovascular: Regular Rate, Rhythm GI/Abdominal: Soft, Non-Tender Neurological: Alert, Oriented, Normal Cognition, Normal Gait, No Motor/Sensory Deficits Psychiatric: Anxious Skin Exam: Warm, Dry, Normal Color Lymphatic: No Adenopathy Course - Vital Signs Last Recorded V/S: Last Vital Signs Temp 36.5 C 08/07/18 02:25 Pulse 80 08/07/18 02:25 Resp 22 H 08/07/18 02:25 BP 122/87 08/07/18 02:25 Pulse Ox 93 L 08/07/18 02:25 - Orders/Labs/Meds Orders: Active Orders 24 hr Category Date Time Status RT Aerosol Therapy [RC] ASDIRECTED Care 08/07/18 02:30 Active Meds: Medications Discontinued Medications Generic Name Dose Route Start Last Admin Trade Name Earlene PRN Reason Stop Dose Admin Albuterol/Ipratropium 3 ml 08/07/18 02:30 08/07/18 02:35 Duoneb 3.0-0.5 Mg/3 Ml NEB 08/07/18 02:31 3 ml ONETIME ONE Administration Albuterol/Ipratropium Confirm 08/07/18 02:31 Duoneb 3.0-0.5 Mg/3 Ml Administered 08/07/18 02:32 Dose 3 ml .ROUTE .STK-MED ONE Methylprednisolone Sodium Succinate 125 mg 08/07/18 02:30 08/07/18 02:35 Solu-Medrol IM 08/07/18 02:31 125 mg ONETIME ONE Administration Methylprednisolone Sodium Succinate Confirm 08/07/18 02:31 Solu-Medrol Administered 08/07/18 02:32 Dose 125 mg .ROUTE .STK-MED ONE - Re-Assessments/Exams Free Text/Narrative Re-Assessment/Exam: 08/07/18 03:02 re-exam; s/p neb+solu = much better now. Departure - Departure Time of Disposition: 03:02 Disposition: Home, Self-Care 01 Condition: Good Clinical Impression: Acute asthma exacerbation Qualifiers: Asthma severity: moderate Asthma persistence: persistent Qualified Code(s): J45.41 - Moderate persistent asthma with (acute) exacerbation - Discharge Information Instructions: Asthma, Adult, [id number] Forms: ED Department Discharge Additional Instructions: 1) return if has to use neb more than every 4 hours in a 24 hour period 2) follow up at clinic rx given; medrol dospak - My Orders Last 24 Hours: My Active Orders 08/07/18 02:30 RT Aerosol Therapy [RC] ASDIRECTED - Assessment/Plan Last 24 Hours: My Active Orders 08/07/18 02:30 RT Aerosol Therapy [RC] ASDIRECTED
[2018-08-07 02:44] VITALS: BP 122/87
== END 2018-08-07 03:30 | disposition home or self-care (01) ==
LOC: DL.ED 02:23
DX: J45.41 Moderate persistent asthma with (acute) exacerbation (principal); Z79.899 Other long term (current) drug therapy; Z88.1 Allergy status to other antibiotic agents
CPT/HCPCS: 94640; 96372; 99284; J2930; J7620-GY

== ENCOUNTER 2018-11-04 22:49 | Observation (INO) | payer MEDICAID ==
[2018-11-04] MEDS ORDERED: Albuterol/Ipratropium 3.0-0.5 MG/3 ML Neb Soln NEB ONE (23:05)
[2018-11-04] MEDS ORDERED: methylPREDNISolone Sodium Succinate 125 MG/2 ML SDV IM ONE (23:06)
[2018-11-04] MEDS ORDERED: Codeine/guaiFENesin 100-10 MG/5 ML Syrup 5 ML Cup PO ONE (23:11)
[2018-11-04] MEDS ORDERED: methylPREDNISolone Sodium Succinate 125 MG/2 ML SDV IVPUSH ONE (23:11)
[2018-11-04 23:34] LABS: ANION GAP 13.9; CHLORIDE,CL 110 mmol/L (101-111); SODIUM,NA 141 mmol/L (135-145)
[2018-11-04] MEDS ORDERED: Albuterol 0.083% 2.5 MG/3 ML Neb Soln NEB ONE (23:40)
--- NOTE | 2018-11-05 00:41 | EDM.PDOC ---
ED HPI GENERAL MEDICAL PROBLEM - General Chief Complaint: Respiratory Problem Stated Complaint: ASTHMA ISSUE Time Seen by Provider: 11/04/18 23:00 Source of Information: Reports: Patient History Limitations: Reports: No Limitations - History of Present Illness INITIAL COMMENTS - FREE TEXT/NARRATIVE: ED with c/o difficulty breathing, frequent cough. Has hx asthma, Used Albuterol neb REPORTER and only helped for few minutes. Symptoms started approximately one week ago but worse throughout today. No fever or chills, Cough productive, yellow , states usual for her, Non smoker, Hospitalized with asthma sx a couple of times per year. Ran out of inhaler and singulair x 2 months. Headache Pain Score (Numeric/FACES): 6 - Related Data Allergies Allergy/AdvReac Type Severity Reaction Status Date / Time levofloxacin Allergy Mild Hives Verified 11/04/18 23:38 Home Meds: Home Meds Montelukast [Singulair] 10 mg PO BEDTIME 12/02/15 [History] Albuterol [Proventil HFA] 2 puff INH Q2H PRN #3 inhaler 12/24/16 [Rx] Inhaler, Assist Devices [Aerochamber with Flowsignal] 1 each MC ASDIRECTED #1 spacer 04/12/17 [Rx] Tiotropium [Spiriva HandiHaler] 1 inh INH DAILY 07/24/18 [History] Albuterol [Proventil Neb Soln] 2.5 mg INH Q4H PRN 08/07/18 [History] Past Medical History HEENT History: Reports: None Cardiovascular History: Reports: None Respiratory History: Reports: Asthma Genitourinary History: Reports: UTI, Recurrent 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: - Infectious Disease History Infectious Disease History: Reports: Chicken Pox - Past Surgical History HEENT Surgical History: Reports: Oral Surgery Respiratory Surgical History: Reports: None Female Surgical History: Reports: None Social & Family History - Family History Family Medical History: Noncontributory Cardiac: Reports: Hypertension Respiratory: Reports: Asthma GI: Reports: None Endocrine/Metabolic: Reports: Diabetes, Type I Oncologic: Reports: Brain - Tobacco Use Smoking Status *Q: Never Smoker Second Hand Smoke Exposure: No - Caffeine Use Caffeine Use: Reports: Soda - Recreational Drug Use Recreational Drug Use: No - Living Situation & Occupation Living situation: Reports: Single, with Family Occupation: Unemployed ED ROS GENERAL - Review of Systems Review Of Systems: ROS reveals no pertinent complaints other than HPI. ED EXAM, GENERAL - Physical Exam Exam: See Below Exam Limited By: No Limitations General Appearance: Alert, No Apparent Distress Eye Exam: Bilateral Eye: EOMI Ears: Normal External Exam, Hearing Grossly Normal Nose: Normal Inspection Throat/Mouth: Normal Oropharynx Head: Atraumatic, Normocephalic Neck: Normal Inspection, Full Range of Motion. No: Lymphadenopathy (L), Lymphadenopathy (R) Respiratory/Chest: No Accessory Muscle Use, Respiratory Distress, Decreased Breath Sounds, Wheezing (thoughout), Other (frequent harsh cough) Cardiovascular: Regular Rate, Rhythm, No Edema GI/Abdominal: Soft Back Exam: Normal Inspection Extremities: Normal Inspection Neurological: Alert, Oriented Course - Vital Signs Last Recorded V/S: Last Vital Signs Temp 96.9 F 11/05/18 05:00 Pulse 77 11/05/18 05:00 Resp 20 11/05/18 05:00 BP 115/46 L 11/05/18 05:00 Pulse Ox 96 11/05/18 05:00 - Orders/Labs/Meds Orders: Active Orders 24 hr Category Date Time Status RT Aerosol Therapy [RC] ASDIRECTED Care 11/04/18 23:05 Active RT Aerosol Therapy [RC] ASDIRECTED Care 11/04/18 23:40 Active Medication Orders Acetaminophen (Tylenol) 650 mg PO Q4H PRN PRN Reason: Pain/Fever Albuterol (Proventil Neb Soln) 2.5 mg NEB Q6HRRT PRN PRN Reason: Shortness of Breath Albuterol/Ipratropium (Duoneb 3.0-0.5 Mg/3 Ml) 3 ml NEB Q6HRRT [facility] Enoxaparin Sodium (Lovenox) 40 mg SUBCUT DAILY [facility] Sodium Chloride (Normal Saline) 1,000 mls @ 100 mls/hr IV ASDIRECTED [facility] Last Admin: 11/05/18 02:05 Dose: 100 mls/hr Mometasone Furoate/Formoterol Fumar (Dulera 200-5 Mcg) 2 puff IH BIDRT [facility] Ondansetron HCl (Zofran) 4 mg IV Q4H PRN PRN Reason: Nausea/Vomiting Prednisone (Prednisone) 50 mg PO WITHBREAKFAST [facility] Sodium Chloride (Saline Flush) 10 ml FLUSH ASDIRECTED PRN PRN Reason: Keep Vein Open Last Admin: 11/05/18 02:06 Dose: 10 ml Sodium Chloride (Saline Flush) 10 ml FLUSH ASDIRECTED PRN PRN Reason: Keep Vein Open Labs: Laboratory Tests 11/04/18 11/04/18 Range/Units 23:03 23:03 WBC 15.4 H (5.0-10.0) 10^3/uL RBC 5.54 H (4.2-5.4) 10^6/uL Hgb 15.5 D (12.0-16.0) g/dL Hct 45.3 (37.0-47.0) % MCV 81.8 (80-100) fL MCH 28.0 (27.0-34.0) pg MCHC 34.2 (33.0-35.0) g/dL Plt Count 384 (150-450) 10^3/uL Neut % (Auto) 52.4 (42.2-75.2) % Lymph % (Auto) 30.3 (20.5-50.1) % [place] % (Auto) 6.4 (2-8) % Eos % (Auto) 10.6 H (1.0-3.0) % Baso % (Auto) 0.3 (0.0-1.0) % Sodium 141 (135-145) mmol/L Potassium 3.9 (3.6-5.0) mmol/L Chloride 110 (101-111) mmol/L Carbon Dioxide 21.0 (21.0-31.0) mmol/L Anion Gap 13.9 BUN 11 (7-18) mg/dL Creatinine 0.7 (0.6-1.3) mg/dL Est Cr Clr Drug Dosing 102.51 mL/min Estimated GFR (MDRD) > 60 BUN/Creatinine Ratio 15.71 Glucose 114 H (74-105) mg/dL Calcium 9.0 (8.4-10.2) mg/dl Magnesium 1.9 (1.8-2.5) mg/dL Total Bilirubin 0.2 (0.2-1.0) mg/dL AST 23 (10-42) IU/L ALT 30 (10-60) IU/L Alkaline Phosphatase 77 (42-121) IU/L Total Protein 8.3 H (6.7-8.2) g/dl Albumin 4.4 (3.2-5.5) g/dl Globulin 3.9 Albumin/Globulin Ratio 1.13 Meds: Medications Generic Name Dose Route Start Last Admin Trade Name Earlene PRN Reason Stop Dose Admin Acetaminophen 650 mg 11/05/18 01:41 Tylenol PO Q4H PRN Pain/Fever Albuterol 2.5 mg 11/05/18 01:41 Proventil Neb Soln NEB Q6HRRT PRN Shortness of Breath Albuterol/Ipratropium 3 ml 11/05/18 07:00 Duoneb 3.0-0.5 Mg/3 Ml NEB Q6HRRT [facility] Enoxaparin Sodium 40 mg 11/05/18 09:00 Lovenox SUBCUT DAILY [facility] Sodium Chloride 1,000 mls @ 100 mls/hr 11/05/18 01:45 11/05/18 02:05 Normal Saline IV 100 mls/hr ASDIRECTED [facility] Administration Mometasone Furoate/Formoterol Fumar 2 puff 11/05/18 07:00 Dulera 200-5 Mcg IH BIDRT [facility] Ondansetron HCl 4 mg 11/05/18 01:41 Zofran IV Q4H PRN Nausea/Vomiting Prednisone 50 mg 11/05/18 08:00 Prednisone PO WITHBREAKFAST [facility] Sodium Chloride 10 ml 11/05/18 01:41 11/05/18 02:06 Saline Flush FLUSH 10 ml ASDIRECTED PRN Administration Keep Vein Open Sodium Chloride 10 ml 11/05/18 01:41 Saline Flush FLUSH ASDIRECTED PRN Keep Vein Open Discontinued Medications Generic Name Dose Route Start Last Admin Trade Name Earlene PRN Reason Stop Dose Admin Albuterol 2.5 mg 11/04/18 23:40 11/05/18 00:04 Proventil Neb Soln NEB 11/04/18 23:41 2.5 mg ONETIME ONE Administration Albuterol/Ipratropium 3 ml 11/04/18 23:05 11/04/18 23:09 Duoneb 3.0-0.5 Mg/3 Ml NEB 11/04/18 23:06 3 ml ONETIME ONE Administration Guaifenesin/Codeine Phosphate 5 ml 11/04/18 23:11 11/04/18 23:19 Robitussin Ac PO 11/04/18 23:12 5 ml ONETIME ONE Administration Methylprednisolone Sodium Succinate 125 mg 11/04/18 23:06 11/04/18 23:11 Solu-Medrol IM 11/04/18 23:07 Not Given ONETIME ONE Methylprednisolone Sodium Succinate 125 mg 11/04/18 23:11 11/04/18 23:12 Solu-Medrol IVPUSH 11/04/18 23:12 125 mg ONETIME ONE Administration - Re-Assessments/Exams Free Text/Narrative Re-Assessment/Exam: 11/05/18 00:41 Frequent harsh cough, minimal improvement following duo neb, moderately improved with 2nd albuterol Neb. Continues to wheeze, lung sounds diminished with some improvement form presentation. Satuartion after nebs 90-91, with Oxygen improved to 95-97. Dr Kp MARMOLEJO hospitalist accepting patient for admission Departure - Departure Time of Disposition: 00:44 Disposition: Refer to Observation Condition: Good Clinical Impression: Exacerbation of asthma - Discharge Information *PRESCRIPTION DRUG MONITORING PROGRAM REVIEWED*: No *COPY OF PRESCRIPTION DRUG MONITORING REPORT IN PATIENT LORETO: No - My Orders Last 24 Hours: My Active Orders 11/04/18 23:05 RT Aerosol Therapy [RC] ASDIRECTED 11/04/18 23:40 RT Aerosol Therapy [RC] ASDIRECTED - Assessment/Plan Last 24 Hours: My Active Orders 11/04/18 23:05 RT Aerosol Therapy [RC] ASDIRECTED 11/04/18 23:40 RT Aerosol Therapy [RC] ASDIRECTED
[2018-11-05] MEDS ORDERED: Albuterol 0.083% 2.5 MG/3 ML Neb Soln NEB PRN (01:41)
[2018-11-05] MEDS ORDERED: Sodium Chloride 0.9% 10 ML Syringe FLUSH PRN ×2 (01:41)
[2018-11-05] MEDS ORDERED: Acetaminophen 325 MG Tab PO PRN (01:41)
[2018-11-05] MEDS ORDERED: Ondansetron 4 MG/2 ML SDV IV PRN (01:41)
--- NOTE | 2018-11-05 02:00 | PCM.HP ---
H&P History of Present Illness - General Date of Service: 11/05/18 Admit Problem/Dx: Admission Diagnosis/Problem Admission Diagnosis/Problem Asthma with acute exacerbation Source of Information: Patient History Limitations: Reports: No Limitations - History of Present Illness Initial Comments - Free Text/Narative: 23 yo F with PMH of asthma who presents with SOB Patient says she has had an increase in symptoms for a week after starting new job at [email or web address] where she is exposed to a lot of second hand smoke. Symptoms worsened considerably today. She tried several rounds of her home nebulizer treatments without relief and this made her come to the ED. No chest pain, no abdominal pain, no fever Cough is associated productive of mucus-like sputum SH: non-smoker, but +ve second hand smoke exposure Headache Pain Score (Numeric/FACES): 6 - Related Data Allergies/Adverse Reactions: Allergies Allergy/AdvReac Type Severity Reaction Status Date / Time levofloxacin Allergy Mild Hives Verified 11/04/18 23:38 Home Medications: Home Meds Montelukast [Singulair] 10 mg PO BEDTIME 12/02/15 [History] Albuterol [Proventil HFA] 2 puff INH Q2H PRN #3 inhaler 12/24/16 [Rx] Inhaler, Assist Devices [Aerochamber with Flowsignal] 1 each MC ASDIRECTED #1 spacer 04/12/17 [Rx] Tiotropium [Spiriva HandiHaler] 1 inh INH DAILY 07/24/18 [History] Albuterol [Proventil Neb Soln] 2.5 mg INH Q4H PRN 08/07/18 [History] Past Medical History HEENT History: Reports: None Cardiovascular History: Reports: None Respiratory History: Reports: Asthma, Other (See Below) Other Respiratory History: pneumonia x2 Genitourinary History: Reports: UTI, Recurrent 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 OB/BYN History: x2 - Infectious Disease History Infectious Disease History: Reports: Chicken Pox - Past Surgical History HEENT Surgical History: Reports: Oral Surgery Other HEENT Surgeries/Procedures: wisdom teeth out Respiratory Surgical History: Reports: None Female Surgical History: Reports: None Social & Family History - Family History Family Medical History: Noncontributory Cardiac: Reports: Hypertension Respiratory: Reports: Asthma GI: Reports: None Endocrine/Metabolic: Reports: Diabetes, Type I Oncologic: Reports: Brain - Tobacco Use Smoking Status *Q: Never Smoker Second Hand Smoke Exposure: Yes - Caffeine Use Caffeine Use: Reports: Coffee, Soda Caffeine Use Comment: occasionally - Alcohol Use Days Per Week of Alcohol Use: 1 Number of Drinks Per Day: 1 Total Drinks Per Week: 1 - Recreational Drug Use Recreational Drug Use: No - Living Situation & Occupation Living situation: Reports: Single, with Family Occupation: Unemployed H&P Review of Systems - Review of Systems: Review Of Systems: ROS reveals no pertinent complaints other than HPI. General: Reports: No Symptoms. Denies: Fever HEENT: Reports: No Symptoms Pulmonary: Reports: Shortness of Breath, Cough Cardiovascular: Reports: No Symptoms Gastrointestinal: Reports: No Symptoms Genitourinary: Reports: No Symptoms Musculoskeletal: Reports: No Symptoms Skin: Reports: No Symptoms Exam - Exam Exam: See Below - Vital Signs Vital Signs: Last Vital Signs Temp 36.3 C 11/04/18 23:36 Pulse 94 11/04/18 23:36 Resp 20 11/04/18 23:36 BP 103/54 L 11/04/18 23:36 Pulse Ox 94 L 11/05/18 01:41 Weight: 81.193 kg - Exam General: Alert, Oriented HEENT: Conjunctiva Clear Neck: Supple Lungs: Wheezing Cardiovascular: Regular Rate, Regular Rhythm, Normal S1, Normal S2 GI/Abdominal Exam: Normal Bowel Sounds, Soft, Non-Tender, No Organomegaly Extremities: Normal Inspection, Normal Range of Motion, Non-Tender, No Pedal Edema - Patient Data Lab Results Last 24 hrs: Laboratory Results - last 24 hr 11/04/18 11/04/18 Range/Units 23:03 23:03 WBC 15.4 H (5.0-10.0) 10^3/uL RBC 5.54 H (4.2-5.4) 10^6/uL Hgb 15.5 D (12.0-16.0) g/dL Hct 45.3 (37.0-47.0) % MCV 81.8 (80-100) fL MCH 28.0 (27.0-34.0) pg MCHC 34.2 (33.0-35.0) g/dL Plt Count 384 (150-450) 10^3/uL Neut % (Auto) 52.4 (42.2-75.2) % Lymph % (Auto) 30.3 (20.5-50.1) % [place] % (Auto) 6.4 (2-8) % Eos % (Auto) 10.6 H (1.0-3.0) % Baso % (Auto) 0.3 (0.0-1.0) % Sodium 141 (135-145) mmol/L Potassium 3.9 (3.6-5.0) mmol/L Chloride 110 (101-111) mmol/L Carbon Dioxide 21.0 (21.0-31.0) mmol/L Anion Gap 13.9 BUN 11 (7-18) mg/dL Creatinine 0.7 (0.6-1.3) mg/dL Est Cr Clr Drug Dosing 102.51 mL/min Estimated GFR (MDRD) > 60 BUN/Creatinine Ratio 15.71 Glucose 114 H (74-105) mg/dL Calcium 9.0 (8.4-10.2) mg/dl Magnesium 1.9 (1.8-2.5) mg/dL Total Bilirubin 0.2 (0.2-1.0) mg/dL AST 23 (10-42) IU/L ALT 30 (10-60) IU/L Alkaline Phosphatase 77 (42-121) IU/L Total Protein 8.3 H (6.7-8.2) g/dl Albumin 4.4 (3.2-5.5) g/dl Globulin 3.9 Albumin/Globulin Ratio 1.13 Result Diagrams: 11/04/18 23:03 11/04/18 23:03 Problem List Initiated/Reviewed/Updated: Yes Orders Last 24hrs: Active Orders 24 hr Category Date Time Status Admission Status [Patient Status] [ADT] Routine ADT 11/05/18 00:39 Active Ambulate [RC] ASDIRECTED Care 11/05/18 01:41 Ordered Height and Weight [RC] DAILY Care 11/05/18 01:41 Ordered Oxygen Therapy [RC] PRN Care 11/05/18 01:41 Ordered Peripheral IV Care [RC] . DIRECTED Care 11/05/18 01:42 Ordered RT Aerosol Therapy [RC] ASDIRECTED Care 11/04/18 23:05 Active RT Aerosol Therapy [RC] ASDIRECTED Care 11/04/18 23:40 Active RT Chest Physiotherapy [RC] ASDIRECTED Care 11/05/18 01:41 Ordered RT Incentive Spirometry [RC] ASDIRECTED Care 11/05/18 01:41 Ordered Up With Assistance [RC] ASDIRECTED Care 11/05/18 01:41 Ordered VTE/DVT Education [RC] PER UNIT ROUTINE Care 11/05/18 01:41 Ordered Vital Signs [RC] Q4H Care 11/05/18 01:41 Ordered Regular Diet [DIET] Diet 11/05/18 Breakfast Ordered CXR [Chest 1V Frontal] [CR] Urgent Exams 11/05/18 00:16 Taken Acetaminophen [Tylenol] Med 11/05/18 01:41 Ordered 650 mg PO Q4H PRN Albuterol [Proventil Neb Soln] Med 11/05/18 01:41 Ordered 2.5 mg NEB Q6HRRT PRN Albuterol/Ipratropium [DuoNeb 3.0-0.5 MG/3 ML] Med 11/05/18 07:00 Ordered 3 ml NEB Q6HRRT Enoxaparin [Lovenox] Med 11/05/18 09:00 Ordered 40 mg SUBCUT DAILY Mometasone/Formoterol [Dulera 200-5 MCG] Med 11/05/18 07:00 Ordered 2 puff IH BIDRT Ondansetron [Zofran] Med 11/05/18 01:41 Ordered 4 mg IV Q4H PRN Sodium Chloride 0.9% [Normal Saline] 1,000 ml Med 11/05/18 01:45 Ordered IV ASDIRECTED Sodium Chloride 0.9% [Saline Flush] Med 11/05/18 01:41 Ordered 10 ml FLUSH ASDIRECTED PRN Sodium Chloride 0.9% [Saline Flush] Med 11/05/18 01:41 Ordered 10 ml FLUSH ASDIRECTED PRN predniSONE Med 11/05/18 08:00 Ordered 50 mg PO WITHBREAKFAST Peripheral IV Insertion Adult [OM.PC] Routine Oth 11/05/18 01:41 Ordered Saline Lock Insert [OM.PC] Routine Oth 11/05/18 01:41 Ordered Resuscitation Status Routine Resus Stat 11/05/18 01:41 Ordered Medication Orders Acetaminophen (Tylenol) 650 mg PO Q4H PRN PRN Reason: Pain/Fever Albuterol (Proventil Neb Soln) 2.5 mg NEB Q6HRRT PRN PRN Reason: Shortness of Breath Albuterol/Ipratropium (Duoneb 3.0-0.5 Mg/3 Ml) 3 ml NEB Q6HRRT [facility] Enoxaparin Sodium (Lovenox) 40 mg SUBCUT DAILY [facility] Sodium Chloride (Normal Saline) 1,000 mls @ 100 mls/hr IV ASDIRECTED [facility] Mometasone Furoate/Formoterol Fumar (Dulera 200-5 Mcg) 2 puff IH BIDRT [facility] Ondansetron HCl (Zofran) 4 mg IV Q4H PRN PRN Reason: Nausea/Vomiting Prednisone (Prednisone) 50 mg PO WITHBREAKFAST [facility] Sodium Chloride (Saline Flush) 10 ml FLUSH ASDIRECTED PRN PRN Reason: Keep Vein Open Sodium Chloride (Saline Flush) 10 ml FLUSH ASDIRECTED PRN PRN Reason: Keep Vein Open Assessment/Plan Comment:: Asthma exacerbation Duo nebs atc, and prn wheezing LABA/ICS therapy Prednisone 50 mg daily for 5 days chest physiotherapy incentive spirometry follow up with pulmonology clinic DVT ppx ambulate patient [place] lovenox
[2018-11-05] MEDS: Sodium Chloride 0.9% 1,000 ML IV SCH ×3 (02:05→22:57)
[2018-11-05] MEDS: Albuterol/Ipratropium 3.0-0.5 MG/3 ML Neb Soln NEB SCH ×3 (07:20→17:45)
[2018-11-05] MEDS ORDERED: Albuterol 0.083% 2.5 MG/3 ML Neb Soln ONE (07:40)
[2018-11-05] MEDS: predniSONE 20 MG Tab PO SCH (08:26)
[2018-11-05] MEDS: Formoterol/Mometasone 200-5 MCG 8.8 GM Inhaler IH SCH ×2 (08:28→17:54)
[2018-11-05] MEDS: Enoxaparin 40 MG/0.4 ML Syringe SUBCUT SCH (08:29)
[2018-11-06] MEDS: Albuterol/Ipratropium 3.0-0.5 MG/3 ML Neb Soln NEB SCH ×3 (00:59→13:55)
[2018-11-06] MEDS: Formoterol/Mometasone 200-5 MCG 8.8 GM Inhaler IH SCH (06:33)
[2018-11-06 08:20] VITALS: BP 112/51
[2018-11-06] MEDS: predniSONE 20 MG Tab PO SCH (09:16)
[2018-11-06] MEDS: Enoxaparin 40 MG/0.4 ML Syringe SUBCUT SCH (09:20)
[2018-11-06 13:57] VITALS: PULSE 122
== END 2018-11-06 15:00 | disposition home or self-care (01) ==
LOC: DL.ED 22:49 → DL.MS 11-05 00:39
PROVIDERS: ADMIT Hospitalist; ATTEND Hospitalist
DX: J45.901 Unspecified asthma with (acute) exacerbation (principal); Z88.1 Allergy status to other antibiotic agents; Z77.22 Contact with and (suspected) exposure to environmental tobacco smoke (acute) (chronic); Z82.5 Family history of asthma and other chronic lower respiratory diseases; Z79.899 Other long term (current) drug therapy
CPT/HCPCS: 36415; 71045; 80053; 83735; 85025; 94640; 96374; 99285; A9270; J1650; J2930; J7030; 96361; 96372; G0378; J7613-GY; J7620-GY

== ENCOUNTER 2018-12-01 21:28 | Emergency (ER) | payer MEDICAID ==
[2018-12-01] MEDS ORDERED: Sodium Chloride 0.9% 1,000 ML IV ONE (23:08)
[2018-12-01] MEDS ORDERED: Albuterol/Ipratropium 3.0-0.5 MG/3 ML Neb Soln NEB ONE (23:08)
[2018-12-01 23:54] LABS: ANION GAP 14.1; CHLORIDE,CL 103 mmol/L (101-111); SODIUM,NA 134 mmol/L (135-145)
--- NOTE | 2018-12-02 01:15 | EDM.PDOC ---
ED HPI GENERAL MEDICAL PROBLEM - General Chief Complaint: Headache Stated Complaint: MIRGANE, CHILLS, SWEATS ETC. PER PT Time Seen by Provider: 12/01/18 22:00 Source of Information: Reports: Patient History Limitations: Reports: No Limitations - History of Present Illness INITIAL COMMENTS - FREE TEXT/NARRATIVE: ED with c/o chills starting yesterday, Headache frontal today unrelieved with tylenol, last dose this am. No vomiting. Nauseated, No diarrhea. Hx asthma intermittent. Has not used inhaler. Bilateral Frontal Headache Pain Score (Numeric/FACES): 6 - Related Data Allergies Allergy/AdvReac Type Severity Reaction Status Date / Time levofloxacin Allergy Intermediate Hives Verified 12/01/18 21:55 Home Meds: Home Meds Montelukast [Singulair] 10 mg PO BEDTIME 12/02/15 [History] Inhaler, Assist Devices [Aerochamber with Flowsignal] 1 each MC ASDIRECTED #1 spacer 04/12/17 [Rx] Tiotropium [Spiriva HandiHaler] 1 inh INH DAILY 07/24/18 [History] Albuterol [Proventil Neb Soln] 2.5 mg INH Q4H PRN 08/07/18 [History] Albuterol Sulfate [Albuterol Sulfate Hfa] 2 puff INH Q4H PRN #1 hfa.aer.ad 11/06 [Rx] Past Medical History HEENT History: Reports: None Cardiovascular History: Reports: None Respiratory History: Reports: Asthma Other Respiratory History: pneumonia x2 Genitourinary History: Reports: UTI, Recurrent 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: - Infectious Disease History Infectious Disease History: Reports: Chicken Pox - Past Surgical History HEENT Surgical History: Reports: Oral Surgery Respiratory Surgical History: Reports: None Female Surgical History: Reports: None Social & Family History - Family History Family Medical History: Noncontributory Cardiac: Reports: Hypertension Respiratory: Reports: Asthma GI: Reports: None Endocrine/Metabolic: Reports: Diabetes, Type I Oncologic: Reports: Brain - Tobacco Use Smoking Status *Q: Never Smoker - Caffeine Use Caffeine Use: Reports: Coffee, Energy Drinks Caffeine Use Comment: Pt reports an energy drink daily, and intermittent cups of coffee. - Recreational Drug Use Recreational Drug Use: No - Living Situation & Occupation Living situation: Reports: Single, with Family Occupation: Unemployed ED ROS GENERAL - Review of Systems Review Of Systems: ROS reveals no pertinent complaints other than HPI. - Physical Exam Exam: See Below Exam Limited By: No Limitations General Appearance: Alert, Mild Distress Eye Exam: Bilateral Eye: EOMI, PERRL Ears: Normal External Exam Nose: Normal Inspection Throat/Mouth: Normal Inspection Head Exam: Atraumatic, Normocephalic Neck: Full Range of Motion. No: Tender Lateral, Tender Midline Respiratory/Chest: No Respiratory Distress, Wheezing (bilateral greater anterior ) Cardiovascular: Normal Peripheral Pulses, Regular Rate, Rhythm GI/Abdominal: Normal Bowel Sounds, Soft Neuro Exam (Abbreviated): Alert, Oriented, Normal Cognition Psychiatric: Normal Affect, Normal Mood Skin Exam: Warm, Dry, Intact, Normal Color Course - Vital Signs Last Recorded V/S: Last Vital Signs Temp 97.0 F 12/02/18 01:23 Pulse 60 12/02/18 01:23 Resp 16 12/02/18 01:23 BP 109/59 L 12/02/18 01:23 Pulse Ox 97 12/02/18 01:23 - Orders/Labs/Meds Labs: Laboratory Tests 12/01/18 12/01/18 12/01/18 Range/Units 23:15 23:15 23:15 WBC 4.4 L (5.0-10.0) 10^3/uL RBC 5.41 H (4.2-5.4) 10^6/uL Hgb 15.0 (12.0-16.0) g/dL Hct 44.5 (37.0-47.0) % MCV 82.3 (80-100) fL MCH 27.7 (27.0-34.0) pg MCHC 33.7 (33.0-35.0) g/dL Plt Count 313 (150-450) 10^3/uL Neut % (Auto) 57.2 (42.2-75.2) % Lymph % (Auto) 28.8 (20.5-50.1) % [place] % (Auto) 11.9 H (2-8) % Eos % (Auto) 1.4 (1.0-3.0) % Baso % (Auto) 0.7 (0.0-1.0) % Add Manual Diff Yes Neutrophils % (Manual) 53 (42-75) % Band Neutrophils % 1 % Lymphocytes % (Manual) 33 (20-50) % Monocytes % (Manual) 12 H (2-8) % Eosinophils % (Manual) 1 (1-3) % Sodium 134 L (135-145) mmol/L Potassium 4.1 (3.6-5.0) mmol/L Chloride 103 (101-111) mmol/L Carbon Dioxide 21.0 (21.0-31.0) mmol/L Anion Gap 14.1 BUN 11 (7-18) mg/dL Creatinine 0.9 (0.6-1.3) mg/dL Est Cr Clr Drug Dosing 83.23 mL/min Estimated GFR (MDRD) > 60 BUN/Creatinine Ratio 12.22 Glucose 104 (74-105) mg/dL Calcium 8.7 (8.4-10.2) mg/dl Total Bilirubin 0.5 (0.2-1.0) mg/dL AST 92 H (10-42) IU/L ALT 115 H (10-60) IU/L Alkaline Phosphatase 79 (42-121) IU/L Total Protein 7.0 (6.7-8.2) g/dl Albumin 3.9 (3.2-5.5) g/dl Globulin 3.1 Albumin/Globulin Ratio 1.26 HCG, Quant 0 (0-25) mIU/ml Beta HCG, Quant < 1050 mIU/ml Urine Color (YELLOW) Urine Appearance (CLEAR) Urine pH (5.0-9.0) Ur Specific [place] (1.005-1.030) Urine Protein (NEGATIVE) Urine Glucose (UA) (NEGATIVE) Urine Ketones (NEGATIVE) Urine Occult Blood (NEGATIVE) Urine Nitrite (NEGATIVE) Urine Bilirubin (NEGATIVE) Urine Urobilinogen (0.2-1.0) mg/dL Ur Leukocyte Esterase (NEGATIVE) 12/02/18 Range/Units 00:18 WBC (5.0-10.0) 10^3/uL RBC (4.2-5.4) 10^6/uL Hgb (12.0-16.0) g/dL Hct (37.0-47.0) % MCV (80-100) fL MCH (27.0-34.0) pg MCHC (33.0-35.0) g/dL Plt Count (150-450) 10^3/uL Neut % (Auto) (42.2-75.2) % Lymph % (Auto) (20.5-50.1) % [place] % (Auto) (2-8) % Eos % (Auto) (1.0-3.0) % Baso % (Auto) (0.0-1.0) % Add Manual Diff Neutrophils % (Manual) (42-75) % Band Neutrophils % % Lymphocytes % (Manual) (20-50) % Monocytes % (Manual) (2-8) % Eosinophils % (Manual) (1-3) % Sodium (135-145) mmol/L Potassium (3.6-5.0) mmol/L Chloride (101-111) mmol/L Carbon Dioxide (21.0-31.0) mmol/L Anion Gap BUN (7-18) mg/dL Creatinine (0.6-1.3) mg/dL Est Cr Clr Drug Dosing mL/min Estimated GFR (MDRD) BUN/Creatinine Ratio Glucose (74-105) mg/dL Calcium (8.4-10.2) mg/dl Total Bilirubin (0.2-1.0) mg/dL AST (10-42) IU/L ALT (10-60) IU/L Alkaline Phosphatase (42-121) IU/L Total Protein (6.7-8.2) g/dl Albumin (3.2-5.5) g/dl Globulin Albumin/Globulin Ratio HCG, Quant (0-25) mIU/ml Beta HCG, Quant mIU/ml Urine Color Yellow (YELLOW) Urine Appearance Clear (CLEAR) Urine pH 5.5 (5.0-9.0) Ur Specific [place] 1.025 (1.005-1.030) Urine Protein Negative (NEGATIVE) Urine Glucose (UA) Negative (NEGATIVE) Urine Ketones Negative (NEGATIVE) Urine Occult Blood Negative (NEGATIVE) Urine Nitrite Negative (NEGATIVE) Urine Bilirubin Negative (NEGATIVE) Urine Urobilinogen 0.2 (0.2-1.0) mg/dL Ur Leukocyte Esterase Negative (NEGATIVE) Meds: Medications Discontinued Medications Generic Name Dose Route Start Last Admin Trade Name Freq PRN Reason Stop Dose Admin Albuterol/Ipratropium 3 ml 12/01/18 23:08 12/02/18 00:03 Duoneb 3.0-0.5 Mg/3 Ml NEB 12/01/18 23:09 3 ml ONETIME ONE Administration Sodium Chloride 1,000 mls @ 999 mls/hr 12/01/18 23:08 12/02/18 00:11 Normal Saline IV 12/02/18 00:08 999 mls/hr .BOLUS ONE Administration Departure - Departure Time of Disposition: 01:12 Disposition: Home, Self-Care 01 Condition: Good Clinical Impression: History of asthma Headache Qualifiers: Headache type: unspecified Headache chronicity pattern: acute headache Intractability: not intractable Qualified Code(s): R51 - Headache - Discharge Information *PRESCRIPTION DRUG MONITORING PROGRAM REVIEWED*: No *COPY OF PRESCRIPTION DRUG MONITORING REPORT IN PATIENT LORETO: No Instructions: Migraine Headache Referrals: PCP,None [Ordering Only Provider] - Forms: ED Department Discharge Additional Instructions: increase fluids rest diet as tolerated follow up if symptoms worsen asthma medications as per home routine
[2018-12-02 01:28] VITALS: BP 109/59; PULSE 60
== END 2018-12-02 01:27 | disposition home or self-care (01) ==
LOC: DL.ED 21:28
DX: R51 Headache (principal); J45.909 Unspecified asthma, uncomplicated; Z88.1 Allergy status to other antibiotic agents; Z79.899 Other long term (current) drug therapy
CPT/HCPCS: 36415; 80053; 81003; 84702; 85025; 94640; 96360; 99284; J7030; J7620-GY

== ENCOUNTER 2020-01-01 06:28 | Emergency (ER) | payer MEDICAID, SELFPAY ==
[2020-01-01 06:38] VITALS: BP 126/59; PULSE 99
--- NOTE | 2020-01-01 07:12 | EDM.PDOC ---
ED HPI GENERAL MEDICAL PROBLEM - General Chief Complaint: Respiratory Problem Stated Complaint: BODY ACHES, CHILLS Time Seen by Provider: 01/01/20 06:55 Source of Information: Reports: Patient History Limitations: Reports: No Limitations - History of Present Illness INITIAL COMMENTS - FREE TEXT/NARRATIVE: Patient is here today for worsening asthma "since it has been cold outside". She has had uncontrolled asthma in the past and had tried many different inhalers. She is currently on budesonide daily, but has gone up to twice daily for the last few days. She noted body aches and feeling really cold when driving home from [place] yesterday. She still has some body aches, but they are better. No known fever. The inhalers will help for a little while. Onset: Gradual Duration: Getting Worse Generalized Pain Score (Numeric/FACES): 5 - Related Data Allergies Allergy/AdvReac Type Severity Reaction Status Date / Time levofloxacin Allergy Intermediate Hives Verified 01/01/20 06:37 Home Meds: Home Meds Albuterol [Proventil Neb Soln] 2.5 mg INH Q4H PRN 08/07/18 [History] Albuterol Sulfate [Albuterol Sulfate Hfa] 2 puff INH Q4H PRN #1 [id number] 11/06/18 [Rx] Albuterol/Ipratropium [DuoNeb 3.0-0.5 MG/3 ML] 3 ml .XX Q4H PRN #30 neb 02/16/19 [Rx] Past Medical History HEENT History: Reports: None Cardiovascular History: Reports: None Respiratory History: Reports: Asthma Other Respiratory History: pneumonia x2 Genitourinary History: Reports: UTI, Recurrent [employer] History: Reports: Other [employer] History: Endocrine/Metabolic History: Reports: Obesity/BMI 30+ - Infectious Disease History Infectious Disease History: Reports: Chicken Pox - Past Surgical History HEENT Surgical History: Reports: Oral Surgery Other HEENT Surgeries/Procedures: wisdom teeth out Cardiovascular Surgical History: Reports: None Respiratory Surgical History: Reports: None Female Surgical History: Reports: None Other Female Surgeries/Procedures: patient is currently Social & Family History - Family History Family Medical History: No Pertinent Family History Cardiac: Reports: Hypertension Respiratory: Reports: Asthma GI: Reports: None Endocrine/Metabolic: Reports: Diabetes, Type I Oncologic: Reports: Brain - Tobacco Use Tobacco Use Status *Q: Never Tobacco User Second Hand Smoke Exposure: No - Caffeine Use Caffeine Use: Reports: None Caffeine Use Comment: Pt reports an energy drink daily, and intermittent cups of coffee. - Recreational Drug Use Recreational Drug Use: No - Living Situation & Occupation Living situation: Reports: Single, with Family Occupation: Unemployed ED ROS GENERAL - Review of Systems Review Of Systems: Comprehensive ROS is negative, except as noted in HPI. ED EXAM, GENERAL - Physical Exam Exam: See Below Exam Limited By: No Limitations General Appearance: Alert, WD/WN, No Apparent Distress Ears: Normal External Exam Head: Atraumatic, Normocephalic Neck: Normal Inspection, Supple Respiratory/Chest: No Respiratory Distress, No Accessory Muscle Use, Wheezing (bilateral) Cardiovascular: Normal Peripheral Pulses, Regular Rate, Rhythm, No Edema, No Murmur GI/Abdominal: Soft, Non-Tender Back Exam: Normal Inspection, Full Range of Motion Extremities: Normal Inspection, Normal Range of Motion, Normal Capillary Refill Neurological: Alert, Oriented, Normal Cognition, Normal Gait Psychiatric: Normal Affect, Normal Mood Skin Exam: Warm, Dry, Intact, Normal Color, No Rash Lymphatic: No Adenopathy Course - Vital Signs Last Recorded V/S: Last Vital Signs Temp 97.6 F 01/01/20 06:32 Pulse 99 01/01/20 06:32 Resp 18 01/01/20 06:32 BP 126/59 L 01/01/20 06:32 Pulse Ox 94 L 01/01/20 06:32 Departure - Departure Time of Disposition: 07:09 Disposition: Home, Self-Care 01 Condition: Good Clinical Impression: Exacerbation of asthma - Discharge Information *PRESCRIPTION DRUG MONITORING PROGRAM REVIEWED*: Not Applicable *COPY OF PRESCRIPTION DRUG MONITORING REPORT IN PATIENT LORETO: Not Applicable Instructions: Asthma, Adult, [id number], Prevent the Spread of COVID-19 if You Are Sick - CDC Forms: ED Department Discharge Additional Instructions: Quarantine at home while awaiting your COVID test results Prednisone 20 mg daily for 5 days. Continue symbicort twice daily until seen by your doctor Follow up with your doctor in 3-5 days Sepsis Event Note (ED) - Evaluation Sepsis Screening Result: No Definite Risk - Focused Exam Vital Signs: Vital Signs Temp Pulse Resp BP Pulse Ox 01/01/20 06:32 97.6 F 99 18 126/59 L 94 L
== END 2020-01-01 07:16 | disposition home or self-care (01) ==
LOC: DL.ED 06:28
DX: J45.901 Unspecified asthma with (acute) exacerbation (principal); E66.9 Obesity, unspecified; Z68.31 Body mass index [BMI] 31.0-31.9, adult; Z88.1 Allergy status to other antibiotic agents; Z20.828 Contact with and (suspected) exposure to other viral communicable diseases
CPT/HCPCS: 99283; 99284; U0002